=== PATIENT | female | born 1980 | race Caucasian/White ===

== ENCOUNTER 2018-04-22 03:02 | Emergency (ER) | payer OTHER, SELFPAY ==
[2018-04-22 03:03] VITALS: BP 131/68; PULSE 115; RESP 18; TEMP 36.8; O2SAT 100; BMI 44.3
--- NOTE | 2018-04-22 03:13 | CT_ITS ---
STUDY: CTA CHEST REASON FOR EXAM: Female, 38 years old. Back pain and right leg pain RADIATION DOSAGE (If Supplied By Facility): CTDIvol = ( 26.68 ) mGy, DLP = ( 708.34 ) mGycm TECHNIQUE: The examination was performed with the intravenous administration of 100ml ml of Isovue 370 contrast material. Post-processing of the angiographic images was performed, with multiplanar reformation and 3D reconstruction. Individualized dose optimization techniques were used for this CT. COMPARISON: None. FINDINGS: Left thyroidectomy. The contrast bolus is suboptimal, and the pulmonary arteries do not enhance. This exam is nondiagnostic for detection of pulmonary embolus. Normal thoracic aorta and visualized great vessels. There is no demonstrated aortic dissection. Normal heart and pericardium. Calcified mediastinal and right hilar lymph nodes. Normal visualized trachea and bronchi. The lungs are well expanded. 3 mm nodule in the right upper lobe on image 190 of series 2. Normal pleura. Normal chest wall structures. Normal osseous structures. Normal visualized upper abdomen. CT/CTA Chest W/WO Contrast IMPRESSION: The contrast bolus is suboptimal, and the pulmonary arteries are essentially unenhanced. This exam is nondiagnostic for detection of pulmonary embolus. No evidence of thoracic aortic aneurysm or dissection. 3 mm right upper lobe nodule. Based on Fleischner Society Guidelines, suggested follow-up for a </=4mm lung nodule detected incidentally on CT (in patients over age 35) is as follows: Low risk patients: No follow-up is needed. High risk patients: Initial follow-up CT at 12 months. If stable at 12 months, no further follow-up is necessary. Electronically Signed: Rafi Sarabia MD at 4:43 EDT Tel , Service support ,
--- NOTE | 2018-04-22 03:15 | ED.VISSUMM ---
- ER Visit Summary Date of Service: 04/22/18 Chief Complaint: [Right back pain] History of Present Illness: The patient is a 38 F [who presents the emergency department with right upper thoracic back pain. She states that for the last 1-2 weeks she has had pain in her right foot she had swelling in her right foot and it radiated up to the knee. That pain went away however she develops this catch in her right back that is progressively worsened is a sharp pain in her right upper back she feels like she cannot get a deep breath and it hurts to take a deep breath. It feels like her kidney stone pain but it is higher and the breathing discomfort is associated with it. No fevers or chills no cough. No PE or DVT risk factors. She has been lennox peaches. She does have a history of herniated disc. She also has had a cholecystectomy.] Physical Examination: [] Patient in mild distress due to pain WN WD NAD PERRL EOMI MMM NECK supple and nontender, no masses RRR no murmur rub or gallop, no peripheral edema, symmetric radial pulses CTAB no respiratory distress tachypneic secondary to pain Back is nontender in the midline throughout the cervical thoracic and lumbar spine No CVA tenderness No reproducible point tenderness to palpation ABDOMEN is soft and nontender, normal bowel sounds, no distension, no rebound or guarding SKIN is warm and dry no rashes Alert and Oriented x3, CN II-XII in tact, no motor or sensory deficits, gait normal No lymphadenopathy Test Results: [] Emergency Department Course and Treatment: [Patient was given pain medicine and EKG was obtained screening labs and a CTA was ordered. EKG is sinus at a rate of 96 with no acute ischemic changes. White blood cell count was slightly elevated at 12.1. TSH was elevated at 6. Patient has had a partial thyroidectomy. She has had a slightly elevated TSH and has followed with an medicare nurse who states it is okay for her to be off medicine. Patient was given Toradol for discomfort and she was feeling much better. She states the pain was really when she took a deep breath. CTA of the chest was obtained to evaluate for PE and was nondiagnostic because of poor contrast bolus. D-dimer was negative. Patient was very concerned about the radiation. Her pain in her foot was consistent with plantar fasciitis that she has been dealing with for the past several months. I think her symptoms are likely secondary to pleurisy. I will give her a low dose prednisone and she states she is quite sensitive to medications. She states that she does not do well with ibuprofen. She was given careful precautions for which to return. We did discuss to 3 mm nodule in her long and appropriate follow-up. She and her are comfortable with plan] Treatment Plan: [] Disposition: [Discharge] Impression: [Right thoracic back pain 2. pleurisy] This note was generated with [employer] dictation software. It may contain incorrect words, spelling, and punctuation that were not noted in review of the chart prior to signing ED Disposition - Plan for ED Patient: Chief Complaint: Back Referrals: Farooq Jimenez III, MD [Primary Care Provider] -
--- NOTE | 2018-04-22 03:19 | ED.DCSUM_ITS ---
- ER Visit Summary Date of Service: 04/22/18 Chief Complaint: [Right back pain] History of Present Illness: The patient is a 38 F [who presents the emergency department with right upper thoracic back pain. She states that for the last 1- 2 weeks she has had pain in her right foot she had swelling in her right foot and it radiated up to the knee. That pain went away however she develops this catch in her right back that is progressively worsened is a sharp pain in her right upper back she feels like she cannot get a deep breath and it hurts to take a deep breath. It feels like her kidney stone pain but it is higher and the breathing discomfort is associated with it. No fevers or chills no cough. No PE or DVT risk factors. She has been lennox peaches. She does have a history of herniated disc. She also has had a cholecystectomy.] Physical Examination: [] Patient in mild distress due to pain WN WD NAD PERRL EOMI MMM NECK supple and nontender, no masses RRR no murmur rub or gallop, no peripheral edema, symmetric radial pulses CTAB no respiratory distress tachypneic secondary to pain Back is nontender in the midline throughout the cervical thoracic and lumbar spine No CVA tenderness No reproducible point tenderness to palpation ABDOMEN is soft and nontender, normal bowel sounds, no distension, no rebound or guarding SKIN is warm and dry no rashes Alert and Oriented x3, CN II-XII in tact, no motor or sensory deficits, gait normal No lymphadenopathy Test Results: [] Emergency Department Course and Treatment: [Patient was given pain medicine and EKG was obtained screening labs and a CTA was ordered. EKG is sinus at a rate of 96 with no acute ischemic changes. White blood cell count was slightly elevated at 12.1. TSH was elevated at 6. Patient has had a partial thyroidectomy. She has had a slightly elevated TSH and has followed with an harvest manager who states it is okay for her to be off medicine. Patient was given Toradol for discomfort and she was feeling much better. She states the pain was really when she took a deep breath. CTA of the chest was obtained to evaluate for PE and was nondiagnostic because of poor contrast bolus. D-dimer was negative. Patient was very concerned about the radiation. Her pain in her foot was consistent with plantar fasciitis that she has been dealing with for the past several months. I think her symptoms are likely secondary to pleurisy. I will give her a low dose prednisone and she states she is quite sensitive to medications. She states that she does not do well with ibuprofen. She was given careful precautions for which to return. We did discuss to 3 mm nodule in her long and appropriate follow-up. She and her are comfortable with plan] Treatment Plan: [] Disposition: [Discharge] Impression: [Right thoracic back pain 2. pleurisy] This note was generated with [employer] dictation software. It may contain incorrect words, spelling, and punctuation that were not noted in review of the chart prior to signing ED Disposition - Plan for ED Patient: Chief Complaint: Back Referrals: Fraooq Jimenez III, MD [Primary Care Provider] -
[2018-04-22 03:22] VITALS: O2SAT 99
[2018-04-22] MEDS: 0.9% Normal Saline 1,000 ML 1000 ML IV (03:30)
[2018-04-22] MEDS: Ketorolac 30 MG/ML Syringe IV (03:34)
[2018-04-22 03:39] LABS: Absolute Lymphocyte Count 4.98 X10^3/ul (0.83-4.51); Absolute Neutrophil Count 5.8 X10^3/uL (2.0-7.7); Basophil# 0.04 X10^3/uL; Basophil% 0.3 % (0-1); Eosinophil# 0.25 X10^3/uL; Eosinophils% 2.1 % (0-5); Hemoglobin 13.1 g/dl (12.0-15.0); Lymphocyte # 4.98 X10^3/ul (4.0); Lymphocyte % 41.2 % (19-41); Mean Corp Hgb Conc 33.6 g/gl (32-36); Mean Corpuscular Hgb 26.8 pg (27.0-32.0); Mean Corpuscular Volume 79.9 fL (81-99); Mean Platelet Vol. 10.4 fl (6.2-12.0); Monocyte# 0.99 X10^3/uL; Monocyte% 8.2 % (0-10); Neutrophil # 5.79 X10^3/uL (2.7-7.7); Neutrophil % 47.9 % (47-70); POSITIVE COUNT NO; POSITIVE DIFFERENTIAL NO; POSITIVE MORPHOLOGY NO; Platelet Count 324 K/mm3 (150-450); RBC Distribution Width SD 40.5 fl (35.1-43.9); Red Blood Count 4.88 M/mm3 (4.2-5.4); White Blood Count 12.1 K/mm3 (4.4-11.0)
[2018-04-22 03:55] LABS: D-Dimer Quantitative (DVT/PE) 0.46 FEU/ug/m (0.27-0.49)
[2018-04-22 03:57] LABS: AST(SGOT) 19 U/L (15-37); Alanine Aminotransfer ALT/SGPT 28 U/L (13-56); Albumin, Serum 3.5 g/dL (3.2-5.0); Alkaline Phosphatase 110 U/L (45-117); Anion Gap 12 (5-15); BUN 13 mg/dL (7-18); BUN/Creat Ratio 15.6 RATIO (10-20); Bilirubin, Direct 0.08 mg/dL (0.00-0.30); Calcium,Total 8.5 mg/dL (8.5-10.1); Chloride 105 mmol/L (98-107); Creatinine, Serum 0.84 mg/dL (0.55-1.02); EST Glomerular Filtration Rate 82 mL/min (>60); Est Glom Filt Rate - Afr Amer 99 mL/min (>60); Estimated Creatinine Clearance 79.18 ml/min; Globulin 3.7 g/dL (2.2-4.2); Glucose 99 mg/dL (74-106); Lipase 119 U/L (73-393); Potassium 3.6 mmol/L (3.5-5.1); Protein, Total 7.2 g/dL (6.4-8.2); Sodium Level 141 mmol/L (136-145); Thyroid Stim Hormone (TSH) 6.59 uIU/mL (0.358-3.74)
[2018-04-22 03:58] LABS: Pregnancy, Serum, hCG Quali. NEGATIVE Negative (0-9 Nonpreg)
[2018-04-22 04:20] LABS: Mucous, Urine 0 SEEN /hpf (<or=2+); Red Blood Cells-Urine 0 SEEN /hpf (0-5)
[2018-04-22 04:22] LABS: Color, Urine Straw (Yellow); Glucose, Dipstick Normal (Normal); Ketone-Dipstick Negative (Negative); Leukocyte Esterase-Dipstick 25 /ul (Negative); Nitrite-Dipstick Negative (Negative); Occult Blood-Urine Negative /ul (Negative); Protein-Dipstick Negative (Negative); Urine Bilirubin Dipstick Negative (Negative); Urine Clarity Clear (Clear); Urine Urobilinogen Normal (Normal)
[2018-04-22 04:38] LABS: Bacteria RARE /hpf (None Seen); Squamous Epithelial Cells - UA 0-5 SEEN /hpf (5-10); White Blood Cells 0-5 SEEN /hpf (0-5)
--- NOTE | 2018-04-22 05:12 | ED.DEP ---
ED Disposition - Plan for ED Patient: Chief Complaint: Back Instructions: Pleurisy Prescriptions: Prednisone 20 mg PO DAILY #5 tablet Referrals: Farooq Jimenez III, MD [Primary Care Provider] - 3-5 Days
[2018-04-22 05:23] VITALS: BP 123/80; PULSE 91; RESP 17; O2SAT 96
== END 2018-04-22 05:24 | disposition home or self-care (01) ==
LOC: ED 03:41
PROVIDERS: Emergency Provider Emergency Medicine; Family Provider Family Medicine; PCP Family Medicine
DX: M54.6 Pain in thoracic spine (principal); R09.1 Pleurisy; R91.1 Solitary pulmonary nodule; Z87.442 Personal history of urinary calculi; Z87.19 Personal history of other diseases of the digestive system; Z90.49 Acquired absence of other specified parts of digestive tract
CPT/HCPCS: 71275; 80048; 80076; 81001; 83690; 84443; 84484; 84703; 85025; 85379; 93005; 96361; 96374; 99284; J7030; Q9967; A4216; J2405

== ENCOUNTER → 2018-04-22 11:13 | Outpatient (CLI) | payer OTHER, SELFPAY ==
--- NOTE | 2018-04-22 11:15 | VDLE_ITS ---
Reason For Study: CP RIGHT LEFT GSV is normal. GSV is normal. CFV is compressible, spontaneous, phasic, CFV is compressible, spontaneous, phasic, competent and demonstrates normal competent, and demonstrates normal augmentation. augmentation. FV is compressible, spontaneous, phasic, FV is compressible, spontaneous, phasic, competent and demonstrates normal competent and demonstrates normal augmentation. augmentation. POP V is compressible, spontaneous, phasic, POP V is compressible, spontaneous, phasic, competent and demonstrates normal competent and demonstrates normal augmentation. augmentation. T/P Trunk is compressible. T/P Trunk is compressible. PTV is compressible. PTV is compressible. RT PerV is compressible. LT PerV is compressible. Procedure Exam performed in department. The exam was diagnostic. A preliminary report was called and/or faxed to Dr. Chris Jimenez. Interpretation Summary No evidence for acute deep venous thrombosis bilateral lower extremities with patent and compressible bilateral great saphenous veins. Ordering Physician: Nicky Park Referring Physician: JENNIFER Jimenez M.D. Performed By: Mike Trejo RVT
== END ==
PROVIDERS: Family Provider Family Medicine; PCP Family Medicine; Visit Provider Emergency Medicine
DX: R07.9 Chest pain, unspecified (principal)
CPT/HCPCS: 93970

== ENCOUNTER → 2018-06-22 20:42 | Outpatient (CLI) | payer OTHER, SELFPAY | PROVIDERS: Visit Provider Nurse Practitioner Women's Health | DX: Z12.4 Encounter for screening for malignant neoplasm of cervix (principal) | CPT/HCPCS: 88175; G0145 ==

== ENCOUNTER → 2019-08-04 13:45 | Outpatient (CLI) | payer OTHER, SELFPAY ==
[2019-06-28 09:16] VITALS: BMI 42.9
--- NOTE | 2019-08-04 18:44 | NEURO ---
NCS and/or EMG Patient Report HPI: Patient is a 39-year-old female who presented with numbness and tingling in both hands which has been going on for about a year. Patient is right-handed. Patient wears both hand braces in the nighttime which helps with the pain and tingling. 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 Patient does not have history of diabetes but have history of hypothyroidism which has not been controlled. Physical Exam: Tenderness noted at both anterior wrist areas. Tinel's sign is positive at both wrist areas. No tenderness at medial epicondyle noted on both sides. Findings: 1.There is a prolongation of distal latency right and left median sensory nerve response 2.There is prolongation of distal latency of the right median motor nerve response. 3.Normal right ulnar sensory and motor nerve conduction studies. 4.Normal needle examination of the right and left upper extremities. Impression: 1. Findings are consistent with moderately severe right and mild left median mononeuropathies at the wrist due to carpal tunnel syndrome. 2. No electrodiagnostic evidence of ulnar neuropathy in both hands. Recommendation: 1. Patient recommended to continue to wear both hands splinta as much as possible. 2. Patient recommended to avoid repetitive right hand movements and heavy lifting from both hands. 3. Patient recommended to consult with her primary care physician regarding treatment of hypothyroidism. 4. Patient may need surgical release of carpal tunnel syndrome if symptoms does not improve.
== END ==
PROVIDERS: Family Provider Family Medicine; PCP Family Medicine; Referring Provider Specialist; Visit Provider Specialist
DX: R20.2 Paresthesia of skin (principal)
CPT/HCPCS: 95886; 95911

== ENCOUNTER → 2020-07-11 09:15 | Outpatient (CLI) | payer OTHER, SELFPAY ==
[2019-06-28 09:16] VITALS: BMI 42.9
== END ==
PROVIDERS: PCP Family Medicine; Referring Provider Family Medicine; Visit Provider Family Medicine
DX: U07.1 COVID-19 (principal)
CPT/HCPCS: 87635; C9803; U0003

== ENCOUNTER 2020-07-26 20:11 | Emergency (ER) | payer OTHER, SELFPAY ==
[2019-06-28 09:16] VITALS: BMI 42.9
[2020-07-26 20:12] VITALS: BP 139/82; PULSE 100; RESP 16; TEMP 36.4; O2SAT 95; BMI 38.7
--- NOTE | 2020-07-26 20:27 | US_ITS ---
HISTORY: BILATERAL LEG PAIN -- HAS COVID EXAMINATION: US Venous Duplex LE Bilat Complete TECHNIQUE: Leonard scale, pulse wave, and color flow Doppler imaging was performed of the lower extremity venous system. The bilateral greater saphenous, common femoral, femoral, and popliteal veins were interrogated. COMPARISON: April 22, 2018. 7 images end greater than a dozen cine clips FINDINGS: There is normal compression, augmentation, and signal throughout the visualized deep lower extremity veins. No Intraluminal filling defects are perceived within the insonated veins. US/Venous Duplex Imag/Kory Extrem IMPRESSION: No sonographic evidence of deep venous thrombosis. at 2131 Reported and signed by: Vincenzo Maravilla MD Electronically Signed: Vincenzo Maravilla MD at 21:30 EST Tel , Service support ,
--- NOTE | 2020-07-26 20:27 | ED.VIS.GEN ---
History of Present Illness Chief Complaint: Lower Extremity Injury Informant: Patient Onset: Days Context: Gradual Onset Timing: Continuous Current Severity: Moderate Maximum Severity: Moderate Narrative: The patient is a 40-year-old female that comes in the emergency department with bilateral calf pain. The patient was positive for Covid just about 3 weeks ago. She states she was having symptoms about 4 days prior to her test. She states that she was having some pain in both calves throughout her illness, but over the past few days it has worsened. She states she has been doing more. She denies any chest pain. She states she had some mild shortness of breath which has been constant since her illness. She denies any fevers or chills. She has no history of pulmonary embolus. She is otherwise been in her normal state of health. Prior similar symptoms: No Recent Illness/Hospitalization: Yes Past Medical History - Allergies and Home Meds Allergies/Adverse Reactions: Allergies ibuprofen Adverse Reaction (Intermediate, Verified 07/26/20 20:14) tingling and numbness in face acetaminophen [From Tylenol] Adverse Reaction (Mild, Verified 07/26/20 20:14) sweat caffeine Adverse Reaction (Verified 07/26/20 20:14) Other lorazepam [From Ativan] Adverse Reaction (Verified 07/26/20 20:14) Other Primary Care Physician: Farooq Jimenez III, MD [Primary Care Provider] - Prior records reviewed: Yes Surgical History: noncontributory Smoking Status: Never smoker Review of Systems General: Denies: Chills, Fever, Sweats Eyes: Denies: Visual changes - bilaterally, Diplopia ENT: Denies: Rhinorrhea, Sore throat Cardiovascular: Denies: Chest pain, Palpitations Respiratory: Denies: Dyspnea, Cough, Dyspnea on exertion Gastrointestinal: Denies: Abdominal pain, Nausea, Vomiting, Diarrhea, Melena, Hematochezia Genitourinary: Denies: Dysuria, Hematuria, Frequency Musculoskeletal: Reports: Myalgias, Arthralgias. Denies: Back pain, Extremity Pain Skin: Denies: Rash, Wounds Neurological: Denies: Headache, Weakness, Numbness Physical Exam Vital Signs/Narrative: Vital Signs Temp Pulse Resp BP Pulse Ox 07/26/20 20:12 97.5 F L 100 16 139/82 H 95 Inital Vital Signs reviewed: Yes General: Well nourished, Well developed, No Acute Distress Head: Normocephalic, Atraumatic Eyes: Perrl, EOMI ENT: Moist mucous membranes, No rhinorrhea Neck: Supple, Nontender Cardiovascular: Regular rate, Regular rhythm, No murmurs Respiratory: No distress, CTA bilaterally, Chest nontender Abdomen: Soft, Nontender, Nondistended, Normal bowel sounds Back: Nontender, Normal Inspection Extremities: Nontender, No edema Skin: Normal color, No rash Neurological: Alert, Oriented x3, Cranial nerves II-XII grossly intact, Normal Strength, Normal Sensation Psychological: Normal affect, Normal Mood Diagnostic/Tx/Re-eval - Medical Decision Making Patient presents with bilateral calf pain. She has been 20 days since her positive test. She has normal pulses. Her calves are soft. Compartments are soft. However, given recent infection with known thrombogenic risk, ultrasound was obtained. Ultrasound shows no evidence of deep vein thrombosis. Metabolic work-up was also unremarkable. At this point, I do not suspect a dangerous process. I do feel the patient is safe for outpatient follow-up. She is comfortable with plan of care. Impression 1. Lower extremity myalgias ED Disposition - Plan for ED Patient: Instructions: ED Muscle Pain Leg Cramps, ED Myositis Referrals: Farooq Jimenez III, MD [Primary Care Provider] -
[2020-07-26 20:54] LABS: Absolute Lymphocyte Count 3.24 X10^3/uL (0.83-4.51); Absolute Neutrophil Count 5.7 X10^3/uL (2.0-7.7); Basophil# 0.07 X10^3/uL; Basophil% 0.7 % (0-1); Eosinophil# 0.16 X10^3/uL; Eosinophils% 1.6 % (0-5); Hemoglobin 13.1 g/dL (12.0-15.0); Lymphocyte # 3.24 X10^3/ul (4.0); Lymphocyte % 32.7 % (19-41); Mean Corpuscular Hgb 27.2 pg (27.0-32.0); Mean Corpuscular Volume 85.1 fL (81-99); Mean Platelet Vol. 10.6 fl (6.2-12.0); Monocyte# 0.68 X10^3/uL; Monocyte% 6.9 % (0-10); NRBC Flagged by Analyzer 0 % (0-5); Neutrophil # 5.73 X10^3/uL (2.7-7.7); Neutrophil % 57.8 % (47-70); Platelet Count 302 K/mm3 (150-450); RBC Distribution Width CV 13.1 % (11.6-14.6); RBC Distribution Width SD 40.3 fl (35.1-43.9); Red Blood Count 4.82 M/mm3 (4.2-5.4); White Blood Count 9.9 K/mm3 (4.4-11.0)
[2020-07-26 21:10] LABS: AST(SGOT) 12 U/L (15-37); Alanine Aminotransfer ALT/SGPT 31 U/L (13-56); Albumin, Serum 3.7 g/dL (3.2-5.0); Alkaline Phosphatase 115 U/L (45-117); Anion Gap 6 (5-15); BUN 15 mg/dL (7-18); BUN/Creat Ratio 17.2 RATIO (10-20); Calcium,Total 9.2 mg/dL (8.5-10.1); Chloride 107 mmol/L (98-107); Creatinine, Serum 0.87 mg/dL (0.55-1.02); EST Glomerular Filtration Rate 77 mL/min (>60); Est Glom Filt Rate - Afr Amer 93 mL/min (>60); Estimated Creatinine Clearance 74.97 ml/min; Globulin 3.8 g/dL (2.2-4.2); Glucose 95 mg/dL (74-106); Potassium 3.6 mmol/L (3.5-5.1); Protein, Total 7.5 g/dL (6.4-8.2); Sodium Level 141 mmol/L (136-145)
== END 2020-07-26 21:33 | disposition home or self-care (01) ==
LOC: ED 20:46
PROVIDERS: Emergency Provider Emergency Medicine; PCP Family Medicine
DX: M79.661 Pain in right lower leg (principal); M79.662 Pain in left lower leg
CPT/HCPCS: 80053; 85025; 93970; 99283; A4216

== ENCOUNTER → 2020-08-07 09:37 | Outpatient (CLI) | payer OTHER, SELFPAY ==
[2020-08-07 08:19] VITALS: BMI 38.9
[2020-08-07 09:57] LABS: Absolute Lymphocyte Count 2.93 X10^3/uL (0.83-4.51); Absolute Neutrophil Count 5.2 X10^3/uL (2.0-7.7); Basophil# 0.05 X10^3/uL; Basophil% 0.6 % (0-1); Eosinophil# 0.12 X10^3/uL; Eosinophils% 1.3 % (0-5); Hematocrit 43.3 % (37-47); Hemoglobin 13.7 g/dL (12.0-15.0); Lymphocyte # 2.93 X10^3/ul (4.0); Lymphocyte % 32.7 % (19-41); Mean Corp Hgb Conc 31.6 g/dL (32-36); Mean Corpuscular Volume 85.4 fL (81-99); Mean Platelet Vol. 9.8 fl (6.2-12.0); Monocyte# 0.64 X10^3/uL; Monocyte% 7.1 % (0-10); NRBC Flagged by Analyzer 0 % (0-5); Neutrophil # 5.18 X10^3/uL (2.7-7.7); Neutrophil % 57.9 % (47-70); Platelet Count 274 K/mm3 (150-450); RBC Distribution Width CV 13.4 % (11.6-14.6); RBC Distribution Width SD 41.6 fl (35.1-43.9); Red Blood Count 5.07 M/mm3 (4.2-5.4)
[2020-08-07 10:16] LABS: Vitamin D,25 Hydroxy 44.4 ng/mL
[2020-08-07 10:21] LABS: Cholesterol 170 mg/dL (200); Glucose 93 mg/dL (74-106); High Density Lipoprotein 58 mg/dL; Thyroid Stim Hormone (TSH) 3.06 uIU/mL (0.358-3.74); Triglycerides 81 mg/dL; Very Low Density Lipoprotein 16 mg/dL (5-40)
== END ==
PROVIDERS: PCP Family Medicine; Referring Provider Obstetrics & Gynecology; Visit Provider Obstetrics & Gynecology
DX: Z01.419 Encounter for gynecological examination (general) (routine) without abnormal findings (principal)
CPT/HCPCS: 36415; 80061; 82306; 82947; 84439; 84443; 85025

== ENCOUNTER → 2021-04-15 10:08 | Outpatient (CLI) | payer OTHER, SELFPAY ==
[2021-04-15 09:21] VITALS: BMI 38.9
[2021-04-15 12:24] LABS: Absolute Lymphocyte Count 2.37 X10^3/uL (0.83-4.51); Absolute Neutrophil Count 3.8 X10^3/uL (2.0-7.7); Basophil# 0.05 X10^3/uL; Basophil% 0.7 % (0-1); Eosinophil# 0.12 X10^3/uL; Eosinophils% 1.8 % (0-5); Hematocrit 43.6 % (37-47); Hemoglobin 14.1 g/dL (12.0-15.0); Lymphocyte # 2.37 X10^3/ul (0.83-4.51); Lymphocyte % 34.6 % (19-41); Mean Corp Hgb Conc 32.3 g/dL (32-36); Mean Corpuscular Hgb 27.2 pg (27.0-32.0); Mean Corpuscular Volume 84.2 fL (81-99); Mean Platelet Vol. 10.2 fl (6.2-12.0); Monocyte# 0.45 X10^3/uL; Monocyte% 6.6 % (0-10); NRBC Flagged by Analyzer 0 % (0-5); Neutrophil # 3.84 X10^3/uL (2.7-7.7); Platelet Count 277 K/mm3 (150-450); RBC Distribution Width CV 14.4 % (11.6-14.6); RBC Distribution Width SD 44.2 fl (35.1-43.9); Red Blood Count 5.18 M/mm3 (4.2-5.4); White Blood Count 6.9 K/mm3 (4.4-11.0)
[2021-04-15 12:44] LABS: ALB/GLOB Ratio 0.9 RATIO (0.9-2.4); AST(SGOT) 43 U/L (15-37); Alanine Aminotransfer ALT/SGPT 88 U/L (13-56); Albumin, Serum 3.5 g/dL (3.2-5.0); Alkaline Phosphatase 86 U/L (45-117); Anion Gap 5 (5-15); BUN 10 mg/dL (7-18); BUN/Creat Ratio 14.1 RATIO (10-20); Calcium,Total 8.6 mg/dL (8.5-10.1); Chloride 108 mmol/L (98-107); Cholesterol 190 mg/dL (200); Creatinine, Serum 0.71 mg/dL (0.55-1.02); EST Glomerular Filtration Rate 97 mL/min (>60); Est Glom Filt Rate - Afr Amer 117 mL/min (>60); Globulin 4.1 g/dL (2.2-4.2); Glucose 88 mg/dL (74-106); High Density Lipoprotein 66 mg/dL; Potassium 4.1 mmol/L (3.5-5.1); Protein, Total 7.6 g/dL (6.4-8.2); Sodium Level 138 mmol/L (136-145); Thyroid Stim Hormone (TSH) 3.13 uIU/mL (0.358-3.74); Triglycerides 154 mg/dL; Very Low Density Lipoprotein 31 mg/dL (5-40)
[2021-04-15 12:47] LABS: Hemoglobin A1c 5.4 % (3.8-5.6)
== END ==
PROVIDERS: PCP Internal Medicine; Visit Provider Internal Medicine
DX: E03.9 Hypothyroidism, unspecified (principal); R73.03 Prediabetes
CPT/HCPCS: 36415; 80053; 80061; 83036; 84439; 84443; 85025

== ENCOUNTER → 2021-04-24 08:45 | Outpatient (CLI) | payer OTHER, SELFPAY ==
[2021-04-15 09:21] VITALS: BMI 38.9
--- NOTE | 2021-04-24 08:50 | US_ITS ---
STUDY: ABDOMINAL ULTRASOUND - RIGHT UPPER QUADRANT REASON FOR VISIT: Female, 41 years old. Elevated liver enzymes TECHNIQUE: Ultrasound evaluation of the right upper quadrant was performed with real-time and static pinto-scale imaging. TECHNICAL QUALITY: Adequate. COMPARISON: None. FINDINGS: Liver: The liver measures 17.7 cm. There is increased echogenicity consistent with fatty infiltration. The bile ducts are within normal limits. There is hepatic color flow. The direction of portal flow is hepatopetal. There is no demonstrated mass lesion. Gallbladder: The patient is status post cholecystectomy. Common Bile Duct (C.B.D.): The common bile duct measures 6 mm. Pancreas: Normal size of the head, body and tail of the pancreas. There is normal echogenicity of the pancreas. There is no demonstrated pancreatic mass or cyst. Right Kidney: Normal size of the right kidney. The right kidney measures 11.8 cm. Normal renal cortex. There is no demonstrated renal mass or cyst. There is no right hydronephrosis. US/Liver IMPRESSION: Fatty liver. No focal hepatic lesions. Status post cholecystectomy. Normal sonographic appearance of the right kidney and pancreas. Electronically Signed: Dylan Ayala MD at 10:04 EDT Tel , Service support ,
== END ==
PROVIDERS: PCP Internal Medicine; Referring Provider Internal Medicine; Visit Provider Internal Medicine
DX: R74.8 Abnormal levels of other serum enzymes (principal)
CPT/HCPCS: 76705

== ENCOUNTER → 2021-08-23 | Outpatient (CLI) | payer OTHER, SELFPAY ==
[2021-08-28 10:13] LABS: HPV APTIMA, High Risk Negative (Negative)
== END | disposition home or self-care (01) ==
LOC: LABSPEC 12:20
PROVIDERS: PCP Internal Medicine; Visit Provider Obstetrics & Gynecology
DX: Z01.419 Encounter for gynecological examination (general) (routine) without abnormal findings (principal)
CPT/HCPCS: 87624; 88175; G0145

== ENCOUNTER → 2021-09-04 08:29 | Outpatient (CLI) | payer OTHER, SELFPAY ==
--- NOTE | 2021-09-04 08:31 | BI_ITS ---
MAMMOGRAPHY - BILATERAL SCREENING REASON FOR EXAM: Female, 41 years old. Routine annual screening examination. PERTINENT HISTORY: Aunt with breast cancer. TECHNIQUE: Digital bilateral breast maurilio (3D mammographic acquisition) in the CC and MLO projections. 2-D mediolateral oblique (MLO) and craniocaudad (CC) views of both breasts were obtained. CAD: Full Field Digital Mammography with Computer Added Detection was performed. COMPARISON: None. Baseline examination. FINDINGS: Breast Composition: The breasts are heterogeneously dense, which may obscure small masses. There are no dominant masses or suspicious calcifications. Small benign-appearing bilateral axillary lymph nodes. No other significant abnormalities are identified. BI/SCRN MAMM (CAD)W/MAURILIO BILAT IMPRESSION: Negative screening mammogram. Yearly followup mammogram recommended. (A) ASSESSMENT CATEGORY: BIRADS Category 2: Benign. A letter regarding these results will be sent to the patient by the facility within 30 days. Approximately 10% of breast cancers are not detected by mammography. A normal mammogram should not delay biopsy of a clinically suspicious abnormality. [id number] Electronically Signed: Clay Garland MD at 9:30 EST , Service support ,
== END ==
PROVIDERS: PCP Internal Medicine; Referring Provider Obstetrics & Gynecology; Visit Provider Obstetrics & Gynecology
DX: Z12.31 Encounter for screening mammogram for malignant neoplasm of breast (principal)
CPT/HCPCS: 77063; 77067

== ENCOUNTER → 2022-03-20 | Outpatient (CLI) | payer OTHER, SELFPAY ==
[2022-03-20 11:59] LABS: Absolute Lymphocyte Count 2.85 X10^3/uL (0.83-4.51); Absolute Neutrophil Count 4.5 X10^3/uL (2.0-7.7); Basophil# 0.06 X10^3/uL; Basophil% 0.7 % (0-1); Eosinophil# 0.12 X10^3/uL; Eosinophils% 1.5 % (0-5); Hematocrit 39.1 % (37-47); Hemoglobin 12.3 g/dL (12.0-15.0); Lymphocyte # 2.85 X10^3/ul (0.83-4.51); Lymphocyte % 34.8 % (19-41); Mean Corp Hgb Conc 31.5 g/dL (32-36); Mean Corpuscular Hgb 25.6 pg (27.0-32.0); Mean Corpuscular Volume 81.3 fL (81-99); Mean Platelet Vol. 10.3 fl (6.2-12.0); Monocyte# 0.67 X10^3/uL; Monocyte% 8.2 % (0-10); NRBC Flagged by Analyzer 0 % (0-5); Neutrophil # 4.45 X10^3/uL (2.7-7.7); Neutrophil % 54.2 % (47-70); Platelet Count 328 K/mm3 (150-450); RBC Distribution Width CV 13.9 % (11.6-14.6); RBC Distribution Width SD 40.7 fl (35.1-43.9); Red Blood Count 4.81 M/mm3 (4.2-5.4); White Blood Count 8.2 K/mm3 (4.4-11.0)
[2022-03-20 12:24] LABS: Vitamin D,25 Hydroxy 40.1 ng/mL
[2022-03-20 12:27] LABS: AST(SGOT) 20 U/L (15-37); Alanine Aminotransfer ALT/SGPT 31 U/L (13-56); Albumin, Serum 3.5 g/dL (3.2-5.0); Alkaline Phosphatase 82 U/L (45-117); Anion Gap 6 (5-15); BUN 10 mg/dL (7-18); Calcium,Total 8.8 mg/dL (8.5-10.1); Chloride 106 mmol/L (98-107); Cholesterol 185 mg/dL (200); Creatinine, Serum 0.77 mg/dL (0.55-1.02); EST Glomerular Filtration Rate 88 mL/min (>60); Est Glom Filt Rate - Afr Amer 106 mL/min (>60); Free T3 2.7 pg/mL (2.18-3.98); Globulin 3.5 g/dL (2.2-4.2); Glucose 97 mg/dL (74-106); High Density Lipoprotein 55 mg/dL; Potassium 4.3 mmol/L (3.5-5.1); Sodium Level 138 mmol/L (136-145); T4 Free Direct 1.03 ng/dL (0.76-1.46); Thyroid Stim Hormone (TSH) 2.32 uIU/mL (0.358-3.74); Triglycerides 112 mg/dL; Very Low Density Lipoprotein 22 mg/dL (5-40)
[2022-03-20 14:03] LABS: Hemoglobin A1c 5.6 % (3.8-5.6)
== END | disposition home or self-care (01) ==
LOC: BIMLAB 09:32
PROVIDERS: PCP Internal Medicine; Referring Provider Internal Medicine; Visit Provider Internal Medicine
DX: E03.9 Hypothyroidism, unspecified (principal); E55.9 Vitamin D deficiency, unspecified; E66.9 Obesity, unspecified; R73.03 Prediabetes
CPT/HCPCS: 36415; 80053; 80061; 82306; 83036; 84439; 84443; 84481; 85025

== ENCOUNTER 2022-05-29 17:57 | Emergency (ER) | payer OTHER, SELFPAY ==
[2022-05-29 17:59] VITALS: BP 155/87; PULSE 124; RESP 18; TEMP 38.6; O2SAT 98; BMI 45.0
--- NOTE | 2022-05-29 18:50 | RAD_ITS ---
STUDY: X-RAY CHEST REASON FOR EXAM: Female, 42 years old. COUGH TECHNIQUE: AP portable COMPARISON: 12/20/2015 FINDINGS: The lungs are clear and expanded. There is no demonstrated pleural abnormality. Normal size heart. Normal mediastinum and king. Normal visualized pulmonary arteries. Normal visualized aortic arch and descending thoracic aorta. Normal visualized thoracic spine. Normal visualized ribs, clavicles, and shoulders. There is no demonstrated abnormality of the visualized soft tissue structures of the upper abdomen. RAD/Chest 1 View (Portable) IMPRESSION: Normal x-ray examination of the chest. Electronically Signed: Von Riggs MD at 19:52 EDT ,
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
[2022-05-29 19:57] VITALS: TEMP 37.7
== END 2022-05-29 20:03 | disposition home or self-care (01) ==
PROVIDERS: Emergency Provider Emergency Medicine; PCP Internal Medicine; Visit Provider Emergency Medicine
DX: B34.9 Viral infection, unspecified (principal); J40 Bronchitis, not specified as acute or chronic; Z20.822 Contact with and (suspected) exposure to COVID-19
CPT/HCPCS: 71045; 87811; 94640; 99282

== ENCOUNTER → 2022-07-10 | Outpatient (CLI) | payer OTHER, SELFPAY ==
--- NOTE | 2022-07-10 13:50 | US_ITS ---
STUDY: THYROID ULTRASOUND REASON FOR EXAM: Female, 42 years old. history of nodule TECHNIQUE: Ultrasound evaluation of the thyroid was performed with real-time and static pinto-scale imaging. COMPARISON: None. FINDINGS: RIGHT LOBE: The right lobe of the thyroid gland measures 4.7 x 1.9 x 2.1 cm. There is a homogeneous echotexture. There are no demonstrated solid, cystic or complex lesions. LEFT LOBE: Nonvisualized postsurgical lobectomy.. ISTHMUS: The isthmus measures 1.4 mm . The regional lymph nodes are normal. US/Thyroid IMPRESSION: Normal right lobe of the thyroid status post left lobectomy Electronically Signed: Von Riggs MD at 22:13 EDT ,
[2022-07-10 14:31] LABS: Vitamin D,25 Hydroxy 65.8 ng/mL
[2022-07-10 14:35] LABS: T4 Free Direct 1.03 ng/dL (0.76-1.46); Thyroid Stim Hormone (TSH) 3.42 uIU/mL (0.358-3.74)
[2022-07-12 09:44] LABS: Thyroid Peroxidase AB < 8 IU/mL (0-34)
== END | disposition home or self-care (01) ==
LOC: US 13:49
PROVIDERS: Nurse Practitioner Family; PCP Internal Medicine; Referring Provider Internal Medicine Endocrinology, Diabetes & Metabolism; Visit Provider Internal Medicine Endocrinology, Diabetes & Metabolism
DX: E55.9 Vitamin D deficiency, unspecified (principal); Z86.39 Personal history of other endocrine, nutritional and metabolic disease
CPT/HCPCS: 36415; 76536; 82306; 84439; 84443; 86376

== ENCOUNTER → 2022-09-18 | Outpatient (CLI) | payer OTHER, SELFPAY ==
--- NOTE | 2022-09-18 08:35 | BI_ITS ---
MAMMOGRAPHY - BILATERAL SCREENING REASON FOR EXAM: Female, 42 years old. Routine annual screening examination. PERTINENT HISTORY: Aunt with breast cancer. TECHNIQUE: Digital bilateral breast maurilio (3D mammographic acquisition) in the CC and MLO projections. 2-D mediolateral oblique (MLO) and craniocaudad (CC) views of both breasts were obtained. CAD: Full Field Digital Mammography with Computer Added Detection was performed. COMPARISON: Comparison is made with prior study dated 09/04/2021. FINDINGS: Breast Composition: There are scattered areas of fibroglandular density. There are no dominant masses or suspicious calcifications. Stable small benign-appearing bilateral axillary lymph nodes. No other significant abnormalities are identified. There has been no significant change since the prior study. BI/SCRN MAMM (CAD)W/MAURILIO BILAT IMPRESSION: Stable bilateral screening mammogram. Yearly follow-up mammogram recommended. (A) ASSESSMENT CATEGORY: BIRADS Category 2: Benign. A letter regarding these results will be sent to the patient by the facility within 30 days. Approximately 10% of breast cancers are not detected by mammography. A normal mammogram should not delay biopsy of a clinically suspicious abnormality. [id number] Electronically Signed: Clay Garland MD at 10:16 EST ,
[2022-09-18 09:53] LABS: Free T3 2.5 pg/mL (2.18-3.98); T4 Free Direct 0.98 ng/dL (0.76-1.46); Thyroid Stim Hormone (TSH) 3.08 uIU/mL (0.358-3.74)
== END | disposition home or self-care (01) ==
PROVIDERS: Preventive Medicine Public Health & General Preventive Medicine; PCP Internal Medicine; Visit Provider Obstetrics & Gynecology
DX: Z12.31 Encounter for screening mammogram for malignant neoplasm of breast (principal); Z80.3 Family history of malignant neoplasm of breast; E03.9 Hypothyroidism, unspecified; E55.9 Vitamin D deficiency, unspecified
CPT/HCPCS: 36415; 77063; 77067; 82306; 84439; 84443; 84481

== ENCOUNTER → 2023-05-29 | Outpatient (CLI) | payer OTHER, SELFPAY ==
[2023-05-29 10:38] LABS: Free T3 2.5 pg/mL (2.18-3.98); T4 Free Direct 1.34 ng/dL (0.76-1.46); Thyroid Stim Hormone (TSH) 1.97 uIU/mL (0.358-3.74)
[2023-05-29 10:41] LABS: Vitamin D,25 Hydroxy 81.8 ng/mL
[2023-05-30 05:07] LABS: Thyroid Peroxidase AB 16 IU/mL (0-34)
== END | disposition home or self-care (01) ==
LOC: MTLAB 08:50
PROVIDERS: PCP Internal Medicine; Referring Provider Preventive Medicine Public Health & General Preventive Medicine; Visit Provider Preventive Medicine Public Health & General Preventive Medicine
DX: E03.9 Hypothyroidism, unspecified (principal); E55.9 Vitamin D deficiency, unspecified
CPT/HCPCS: 36415; 82306; 84439; 84443; 84481; 86376

== ENCOUNTER → 2023-09-22 | Outpatient (CLI) | payer OTHER, SELFPAY ==
--- NOTE | 2023-09-22 12:03 | BI_ITS ---
MAMMOGRAPHY - BILATERAL SCREENING REASON FOR EXAM: Female, 43 years old. Routine annual screening examination. PERTINENT HISTORY: Non-contributory. TECHNIQUE: Digital bilateral breast maurilio (3D mammographic acquisition) in the CC and MLO projections. 2-D mediolateral oblique (MLO) and craniocaudad (CC) views of both breasts were obtained. CAD: Full Field Digital Mammography with Computer Added Detection was performed. COMPARISON: Comparison is made with prior study dated March 18, 2023. FINDINGS: Breast Composition: There are scattered areas of fibroglandular density. There are no dominant masses or suspicious calcifications. No other significant abnormalities are identified. There has been no significant change since the prior study. BI/SCRN MAMM (CAD)W/MAURILIO BILAT IMPRESSION: Stable bilateral screening mammogram. Yearly follow-up mammogram recommended. (A) ASSESSMENT CATEGORY: BIRADS Category 1: Negative. A letter regarding these results will be sent to the patient by the facility within 30 days. Approximately 10% of breast cancers are not detected by mammography. A normal mammogram should not delay biopsy of a clinically suspicious abnormality. [id number] Electronically Signed: Clay Garland MD at 13:32 EST ,
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
== END | disposition home or self-care (01) ==
LOC: OPBI 12:03
PROVIDERS: PCP Internal Medicine; Referring Provider Obstetrics & Gynecology; Visit Provider Obstetrics & Gynecology
DX: Z12.31 Encounter for screening mammogram for malignant neoplasm of breast (principal)
CPT/HCPCS: 77063; 77067

== ENCOUNTER → 2024-02-11 | Outpatient (CLI) | payer OTHER, SELFPAY ==
[2024-02-11 10:08] LABS: Absolute Lymphocyte Count 2.42 X10^3/uL (0.83-4.51); Absolute Neutrophil Count 4.2 X10^3/uL (2.0-7.7); Basophil# 0.05 X10^3/uL; Basophil% 0.7 % (0-1); Eosinophils% 1.4 % (0-5); Hematocrit 40.4 % (37-47); Hemoglobin 12.9 g/dL (12.0-15.0); Lymphocyte # 2.42 X10^3/ul (0.83-4.51); Lymphocyte % 33.5 % (19-41); Mean Corp Hgb Conc 31.9 g/dL (32-36); Mean Corpuscular Hgb 25.9 pg (27.0-32.0); Mean Platelet Vol. 9.8 fl (6.2-12.0); Monocyte# 0.46 X10^3/uL; Monocyte% 6.4 % (0-10); NRBC Flagged by Analyzer 0 % (0-5); Neutrophil # 4.17 X10^3/uL (2.7-7.7); Neutrophil % 57.7 % (47-70); Platelet Count 299 K/mm3 (150-450); RBC Distribution Width CV 13.9 % (11.6-14.6); RBC Distribution Width SD 40.8 fl (35.1-43.9); Red Blood Count 4.99 M/mm3 (4.2-5.4); White Blood Count 7.2 K/mm3 (4.4-11.0)
[2024-02-11 10:30] LABS: Vitamin D,25 Hydroxy 64.1 ng/mL
[2024-02-11 10:46] LABS: Hemoglobin A1c 5.5 % (3.8-5.6)
[2024-02-11 11:09] LABS: ALB/GLOB Ratio 0.9 RATIO (0.9-2.4); AST(SGOT) 22 U/L (15-37); Alanine Aminotransfer ALT/SGPT 33 U/L (13-56); Albumin, Serum 3.6 g/dL (3.2-5.0); Alkaline Phosphatase 92 U/L (45-117); Anion Gap 8 (5-15); BUN 9 mg/dL (7-18); BUN/Creat Ratio 11.9 RATIO (10-20); Chloride 106 mmol/L (98-107); Cholesterol 161 mg/dL (200); Creatinine, Serum 0.75 mg/dL (0.55-1.02); EST Glomerular Filtration Rate 89 mL/min (>60); Est Glom Filt Rate - Afr Amer 108 mL/min (>60); Estradiol 72.2 pg/mL; Ferritin 20 ng/mL (8-252); Follicle Stimulating Hormone 5.3 mIU/mL; Glucose 95 mg/dL (74-106); High Density Lipoprotein 56 mg/dL; Iron 70 ug/dL (50-170); Iron Binding Capacity,Total 438 ug/dL (250-450); Potassium 3.8 mmol/L (3.5-5.1); Protein, Total 7.6 g/dL (6.4-8.2); Sodium Level 138 mmol/L (136-145); Thyroid Stim Hormone (TSH) 2.32 uIU/mL (0.358-3.74); Triglycerides 109 mg/dL; Very Low Density Lipoprotein 22 mg/dL (5-40)
[2024-02-17 11:09] LABS: Testosterone Free 1.5 pg/mL (0.0-4.2)
[2024-02-17 16:10] LABS: 17-Hydroxyprogesterone 19 ng/dL (.)
== END | disposition home or self-care (01) ==
LOC: PAVLAB 09:36
PROVIDERS: PCP Internal Medicine; Referring Provider Obstetrics & Gynecology; Visit Provider Obstetrics & Gynecology
DX: N93.9 Abnormal uterine and vaginal bleeding, unspecified (principal); Z13.29 Encounter for screening for other suspected endocrine disorder; Z13.21 Encounter for screening for nutritional disorder; Z13.220 Encounter for screening for lipoid disorders; Z13.1 Encounter for screening for diabetes mellitus
CPT/HCPCS: 36415; 80053; 80061; 82306; 82627; 82670; 82728; 83001; 83036; 83498; 83540; 83550; 84402; 84443; 85025; 82626

== ENCOUNTER → 2024-02-18 | Outpatient (CLI) | payer OTHER, SELFPAY ==
--- NOTE | 2024-02-18 12:57 | US_ITS ---
STUDY: ULTRASOUND OF THE FEMALE PELVIS - COMPLETE REASON FOR EXAM: Female, 43 years old. Abnormal uterine bleeding. Heavy menses. LMP: February 04, 2024. TECHNIQUE: Transabdominal and Transvaginal TECHNICAL QUALITY: Adequate. COMPARISON: None. FINDINGS: The uterus is anteverted and is in a midline position. The uterus measures 12.1 cm x 5.8 cm x 4.8 cm. There is a Nabothian cyst of the cervix. The endometrium measures 10.3 mm in thickness, and is heterogeneous (striated). There is no demonstrated endometrial mass. Heterogeneous appearance of the uterus. Adenomyosis should be ruled out. I.U.D. - The patient does not have an I.U.D. The right ovary is visualized. The right ovary measures 4.3 cm x 2.5 cm x 2.1 cm. There is a 2.3 cm x 2.2 cm x 1.8 cm simple cyst. There is no visualized right adnexal mass or complex lesion. There is normal arterial and normal venous vascularity. The left ovary is visualized. The left ovary measures 2.9 cm x 2.8 cm x 2.1 cm. There is no left ovarian cyst or ovarian mass. There is no visualized left adnexal mass or complex lesion. There is normal arterial and normal venous vascularity. There is no fluid in the cul-de-sac. The pre void volume of the bladder was 580. ml. US/Pelvic w/ Transvaginal IMPRESSION: Heterogeneous appearance of the myometrium suggestive of adenomyosis. Thickened endometrium. Right ovarian cyst. Electronically Signed: Clay Garland MD at 15:16 EDT ,
== END | disposition home or self-care (01) ==
LOC: US 12:56
PROVIDERS: PCP Internal Medicine; Referring Provider Obstetrics & Gynecology; Visit Provider Obstetrics & Gynecology
DX: N93.9 Abnormal uterine and vaginal bleeding, unspecified (principal)
CPT/HCPCS: 76830; 76856

== ENCOUNTER → 2024-02-20 | Outpatient (CLI) | payer OTHER, SELFPAY | END | disposition home or self-care (01) | LOC: LAB 07:57 | PROVIDERS: PCP Internal Medicine; Referring Provider Nurse Practitioner; Visit Provider Nurse Practitioner | DX: R19.7 Diarrhea, unspecified (principal); K58.9 Irritable bowel syndrome, unspecified | CPT/HCPCS: 87493; 87506 ==

== ENCOUNTER 2024-04-12 08:34 | Day surgery (SDC) | payer OTHER, SELFPAY ==
[2024-04-12] VITALS (8 sets, daily range): BP systolic 90–132; BP diastolic 57–75; PULSE 51–89; RESP 16–18; TEMP 36.6–37.2; O2SAT 92–100; BMI 43.4
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
[2024-04-12 09:03] LABS: Internal QC Validated? YES +Cl - CLEAR BKGD
[2024-04-12 09:04] LABS: Pregnancy, Urine Negative Negative
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
[2024-04-12] MEDS: Lactated Ringers 1,000 ML 15 ML IV (09:15)
--- NOTE | 2024-04-12 09:55 | FALS_PTH ---
PATIENT: ZENY GARCIA LOC: [facility] – [place] U#:[id number] AGE/SX: 43/F ROOM: RE04/12/[address]: Dr. Angelica Jolley MD : 1980 BED: DIS: 04/12/2024 SPEC #: [id number] RECD: 04/12/24 11:12 STATUS: MARCELLA CONRADO #: [id number] RICHA: 04/12/24 09:[address]: Angelica Jolley DEPT: SURGICAL PATHOLOGY RECD BY: Stevo Taylor ENTERED: 04/12/24 13:09 SP TYPE: FALL TUBES OTHR DR: Bertha Nation, RADHA Tissues: Fallopian tube Procedures: Surgery Specimen Level II HEADER OPERATION: Laparoscopic bilateral salpingectomy, hysteroscopy D&C PRE-OP DIAGNOSIS: Abnormal uterine bleeding, sterilization request TISSUE SUBMITTED: A- Bilateral fallopian tubes, B- Endometrial curettings MICROSCOPIC DIAGNOSIS A. Right and left fallopian tubes, bilateral salpingectomies: Complete cross-sections of one fallopian tubes with no pathologic change. Complete cross-sections of second fallopian tube with benign paratubal cyst. B. Endometrium, curettings: Secretory endometrium. Rare fragments of benign superficial endocervix. / 04/13/2024 MICROSCOPIC DESCRIPTION Slides are reviewed. GROSS DESCRIPTION A. Received in fixative is one container labeled with the patient's name and designated bilateral fallopian tubes. The specimen consists of bilateral fallopian tubes including fimbrial ends. Each fallopian tube measures 5.0 cm in length and 0.5 cm in diameter. The fallopian tubes are not identified as right or left. Sections reveal unremarkable cut surfaces. One of the fallopian tubes shows a paratubal cyst measuring 2.5 x 2.0 x 1.0cm. The cyst is filled with clear fluid. Rating Examiner sections are submitted in two cassettes as follows: 1- one fallopian tube, 2- second fallopian with paratubal cyst. Received in fixative is one container labeled with the patient's name and designated Endometrial curettings. The specimen consists of multiple irregular fragments of hemorrhagic soft tissue mixed with mucoid tissue that in aggregate measure 3.0 x 2.5 x 0.3 cm. The specimen is totally submitted in one cassette. [facility] 04/12/2024 TC:5 CPT:30411m4,02608
[2024-04-12] MEDS: Bupivacaine 0.25% 30 ML Vial (10:25)
--- NOTE | 2024-04-12 10:51 | PCM.OPRPT ---
Problems Associated Problem List Diagnoses (1) Sterilization: (2) Abnormal uterine bleeding: Report of Operation Date of Procedure: 04/12/24 Pre-Operative Diagnosis: see problem list Post-Operative Diagnosis: same Surgery/Procedure Performed:: laparoscopic bilateral salpingectomy d and c hysteroscopy Description of Surgical Findings:: nl uterus tubes ovaries Surgeon: Angelica Jolley Type of Anesthesia: General and Local Special Medications: none Specimen's removed: tubes emc Drains: none Estimated Blood Loss (mL): 25 Fluids Replaced: crystalloid Description of Procedure: Patient was taken in the operating room and was placed under general anesthesia was prepped and draped in normal sterile fashion in the dorsal lithotomy position. Bladder was drained of clear urine and SCDs were on preoperatively. Uterus was sounded and a uterine manipulator was placed after dilating. Attention was then paid to the abdominal portion of the procedure and the umbilicus was elevated with towel clamps and injected with Marcaine and after a 5 mm incision was made and the Veress needle was entered into the abdomen confirmed to be intra-abdominal with a low opening pressure of less than 5 mmHg. Abdomen was insufflated with CO2 gas and a 5 mm optical trocar was placed under direct visualization. A 5 mm port suprapubically was placed under direct visualization. Uterus was well visualized and bilateral fallopian tubes identified and bilateral tubes were elevated and transecting across the mesosalpinx and the attachment to the uterine corpus bilaterally the tubes were removed without complication. Excellent hemostasis was noted. Fallopian tubes were removed through the lower port site without complication. Liver and upper abdomen were visualized notably within normal limits and no other gross abnormalities were seen in the abdomen. All instruments removed from the abdomen after gas was desufflated. Port sites were closed with 3-0 Monocryl Steri's and op sites were applied. attention paid to vaginal portion, manipulator remove dna dcervix dilated to allow passage of 5 mm hysteroscope, uterine lining visualized and no gross abnormalities seen. curettage performed and tissue sent for analysis. All instruments removed from the vagina and patient was awoken and taken recovery in stable condition. Grafts/Implants Used: none Procedure Start Time: 10:24 Procedure Stop Time: 10:47 Complications none Admit VTE Documentation VTE Present on Admission: No VTE Mechan Device Prophylaxis: SCD's Multi Select Codes Urinary/Genital Urinary/Genital CPT Codes: 16793 Laproscopic BS/O
--- NOTE | 2024-04-12 10:55 | DCINST_ITS ---
Discharge Instructions Diet Discharge Diet: No restrictions Activity Discharge Activity: Return to Normal Activity, May Not Drive (for 2 weeks or while taking narcotic pain meds.), May Shower and May Take a Tub Bath (in 7 days) May resume sexual activity in: 1 week Weight Bearing Status: Full weight bearing Dressing / Incision Call your doctor if your incision/area has: Continuous Slow Oozing, Sudden Increased Bleeding, Increased Pain/ Swelling, Increased Redness and Foul Smelling Discharge Call your doctor if you observe: Fever of 101 or Higher, Using more than 1 pad per hour, Shortness of breath, Chest pain and Uncontrolled pain Suture Line Care: Avoid Pulling/Pushing and Avoid Pinching/Bending Remove Dressing in: 1 week (if present) Cleanse incision/area with: Soap & Water and Keep Dressing Clean & Dry Follow Up Care When: Call to make an appointment with your doctor for a fu/incision check in 1- 2 weeks. Test Results: Test results from this visit will be discussed in further detail at your follow- up appointment, if applicable. Discharge Plan Admission Attending Provider: Angelica Jolley Primary Care Provider: Bertha Nation Instructions Print Language: Ivorian Discharge Orders/Prescriptions Prescriptions: No Action Complete Multivitamin Tablet 1 tab PO DAILY cholecalciferol (vitamin D3) 25 mcg (1,000 unit) capsule 25 mcg PO DAILY cellular complex 2 cap PO BID essential oil 2 drp PO TID Probiotic 3 billion cell capsule 3,000 mmu cells PO DAILY Rx Instructions: administer with a meal MEDAPURE DS 1 sc PO BID BILEX 2 - 3 tab PO DAILY Referrals / Follow Up: Bertha Nation, FREDY-C [Primary Care Provider] - Disposition Disposition (needs filled in before D/C Order can be placed): Home, Self Care
--- NOTE | 2024-04-12 10:57 | PCM.POST.ANE ---
Anesthesia: Postop Eval I Current Vital Signs Temperature: 97.9 F Pulse Rate: 76 Blood Pressure: 90/57 Respiratory Rate: 18 Pulse Ox: 95 Assessment Airway patent: Yes Spontaneous unlabored respirations: Yes nausea: No Vomiting: No Anesthesia Complication: No Fluid Hydration Crystalloid volume administer (ml): 800 Total IV fluid infused: 800 Progress Note Anesthesia document: Postop Eval 1 completed: Yes
--- NOTE | 2024-04-12 12:53 | POSTOPAN2_ITS ---
Anesthesia Postop Eval I Sum Postop Eval Completion status Anesthesia document: Postop Eval 1 completed: Yes Anesthesia Postop Eval I Summary Anesthesia Postop Eval I Summary: Anesthesia Postop Eval I: Assessment Summary Airway patent Yes 04/12/24 10:57 CASING CREW [email or web address].CSIR Spontaneous unlabored Yes 04/12/24 10:57 CASING CREW PUSHER.CSIR respirations Mental status nausea No 04/12/24 10:57 CASING CREW PUSHER.CSIR Vomiting No 04/12/24 10:57 CASING CREW PUSHER.CSIR Anesthesia Postop Eval I: Fluid Summary Crystalloid volume administer 800 04/12/24 10:57 CASING CREW PUSHER.CSIR (ml) Colloids volume administered ( ml) Blood Product volume administered (ml) Total IV fluid infused 800 04/12/24 10:57 CASING CREW PUSHER.CSIR Anesthesia Postop Eval I: Summary Notes Anesthesia Complication No 04/12/24 10:57 CASING CREW PUSHER.CSIR Anesthesia Complication Comment: Post-operative progress note Anesthesia: Postop Eval II Evaluation Mental status: Awake Pain Level: 0 nausea: No Vomiting: No
--- NOTE | 2024-04-12 12:53 | PCM.POSTANE2 ---
Anesthesia Postop Eval I Sum Postop Eval Completion status Anesthesia document: Postop Eval 1 completed: Yes Anesthesia Postop Eval I Summary Anesthesia Postop Eval I Summary: Anesthesia Postop Eval I: Assessment Summary Airway patent Yes 04/12/24 10:57 ELECTRONICS SCALE [email or web address].CSIR Spontaneous unlabored Yes 04/12/24 10:57 ELECTRONICS SCALE TESTER.CSIR respirations Mental status nausea No 04/12/24 10:57 ELECTRONICS SCALE TESTER.CSIR Vomiting No 04/12/24 10:57 ELECTRONICS SCALE TESTER.CSIR Anesthesia Postop Eval I: Fluid Summary Crystalloid volume administer 800 04/12/24 10:57 ELECTRONICS SCALE TESTER.CSIR (ml) Colloids volume administered ( ml) Blood Product volume administered (ml) Total IV fluid infused 800 04/12/24 10:57 ELECTRONICS SCALE TESTER.CSIR Anesthesia Postop Eval I: Summary Notes Anesthesia Complication No 04/12/24 10:57 ELECTRONICS SCALE TESTER.CSIR Anesthesia Complication Comment: Post-operative progress note Anesthesia: Postop Eval II Evaluation Mental status: Awake Pain Level: 0 nausea: No Vomiting: No
== END 2024-04-12 12:53 | disposition home or self-care (01) ==
LOC: SDC 08:40 → AC 08:44
PROVIDERS: PCP Nurse Practitioner; Referring Provider Obstetrics & Gynecology; Visit Provider Obstetrics & Gynecology
PROC: (CPT 58661; principal; 2024-04-12 09:40)
DX: Z30.2 Encounter for sterilization (principal); N93.9 Abnormal uterine and vaginal bleeding, unspecified; N83.8 Other noninflammatory disorders of ovary, fallopian tube and broad ligament
CPT/HCPCS: 58661; 58558; 00840; 81025; 86850; 86900; 86901; 88302; J7120; J2405

== ENCOUNTER 2024-06-23 07:17 | Day surgery (SDC) | payer OTHER, SELFPAY ==
[2024-06-23] VITALS (7 sets, daily range): BP systolic 89–127; BP diastolic 72–80; PULSE 80–102; RESP 16; TEMP 36.5–37.3; O2SAT 95–100; BMI 39.3
--- NOTE | 2024-06-23 | COLBX_PTH ---
PATIENT: ZENY GARCIA LOC: EN U#:[id number] AGE/SX: 44/F ROOM: RE06/23/[address]: Dr. Ernesto Pratt MD : 1980 BED: DIS: 06/23/2024 SPEC #: [id number] RECD: 06/23/24 13:10 STATUS: MARCELLA CONRADO #: [id number] RICHA: 06/23/24 00:[address]: Ernesto Pratt DEPT: SURGICAL PATHOLOGY RECD BY: Donaldo Rudd ENTERED: 06/23/24 13:10 SP TYPE: COLON BX OTHR DR: Bertha Nation, CELL RELINER-C Tissues: A - Descending colon B - Sigmoid colon biopsy Procedures: Surgery Specimen Level IV HEADER OPERATION: Colonoscopy with polypectomy PRE-OP DIAGNOSIS: Change in bowel habits TISSUE SUBMITTED: A- Descending colon polyp, B- Sigmoid colon polyp biopsy MICROSCOPIC DIAGNOSIS A. Descending colon polyp, biopsy: Cauterized fragments of hyperplastic glandular mucosa. B. Sigmoid colon polyp, biopsy: Tubular adenoma. AM. 06/24/2024 MICROSCOPIC DESCRIPTION Slides are reviewed. GROSS DESCRIPTION A. Received in fixative is one container labeled with the patient's name and designated Descending colon polyp. The specimen consists of one irregular fragment of light brewer soft tissue that measures 0.1 x 0.1 x 0.1 cm. The specimen is totally submitted in one cassette. B. Received in fixative is one container labeled with the patient's name and designated Sigmoid colon polyp biopsy. The specimen consists of two irregular fragments of light brewer soft tissue that in aggregate measure 0.3 x 0.2 x 0.1 cm. The specimen is totally submitted in one cassette. 06/23/2024 TC:5 CPT:79488j1
--- NOTE | 2024-06-23 07:45 | HP.PCM_ITS ---
History and Physical Date of Admission: 06/23/24 HPI HPI HPI: Patient is a 43-year-old female who presents for need to schedule diagnostic colonoscopy secondary to change in bowel habits (development of looser stools). They are referred for surgical consultation from Ms. Bertha Salas NP. Patient has not had prior colonoscopy. She shares that she noticed the change in her bowel habits approximately 10 to 12 months ago. Initially she states that it was not occurring all the time but over the last month or so the bowels became really loose to diarrhea. She denies any medication changes around that time. She shares that since she does not have a gallbladder she initially thought it was something that she ate, however, when it persisted she decided to have it addressed. She does state that she went on to be prescribed antibiotics for strep throat at the end of January but even after that time she did not experience an improvement. In addition to the looser stools she describes lots of pressure and pain. She shares that she was seen by Dr. Jolley of [facility] middle of January 2024 and was evaluated for hemorrhoids but none were found. She has children aged 12, 15, and 17 that were all delivered naturally and states that her experience of these bowel movements was the equivalent. Ad ditionally she has noted some itching as well as some blood on the toilet paper and it feels as though she can never wipe enough. She now reports that over the last week or so she has only had 2-3 bouts of diarrhea but still is experiencing bowel movements 2-3 times per day. She does note that she is having bleeding most times. She describes a 25 to 30 pound weight gain over the last year, but is not sure of the source of this weight gain as she has been advised that her thyroid function is normal. She confirms that she has restricted herself from gluten and sugar for some time now. Patient describes new fatigue, but states that she is quite sure this is related to a busy lifestyle and describes going on a trip with her 8 grade child to [facility] before turning around and going with her eldest child to [place] for a mission trip. They do not regularly take fiber supplements, but states there is some use of flax meal which she repeatedly shares that she must be careful with to avoid her becoming bound up. They do not consume significant fiber in their regular diet. Patient has a family history of colon cancer in her paternal grandmother diagnosed in her 80s. The patient is not prescribed anticoagulants/blood thinners. Relevant prior abdominal surgical history includes: None besides cholecystectomy Patient does not have a significant history of GERD/heartburn Lastly patient denies any history of tobacco and shares that she is unable to use NSAIDs as she will get a tingly feeling when taking these medications ROS General General: Yes weight change and fatigue; No appetite, colon cancer, breast cancer or weakness HEENT HEENT: No difficulty swallowing, eye injury, eye surgery, swollen glands or hoarseness Endo Endocrine: Yes thyroid disease; No diabetes mellitus, thyroid cancer, Hair loss, heat intolerance or cold intolerance Skin Skin: No rash or changing moles Musc Musculoskeletal: No back problems, arthritis, rheumatoid arthritis, gout or joint pain Cardio Cardiovascular: No murmur, pacemaker, heart disease, atrial fibrillation, high blood pressure, heart attack, heart stent, palpitations, shortness of breat with exertion or chest pain Psych Psychiatric: No depression, anxiety or hearing voices Resp Respiratory: No shortness of breath, No sleep apnea, No cough, No COPD, No asthma, No emphysema and No wheezing Gastro Gastrointestinal: No abdominal pain, Yes nausea or vomiting, Yes diarrhea, No constipation, Yes blood in stool, No acid reflux, No hemorrhoids, No ulcers, No gallbladder problem and No black,tarry stools Jer Hematologic: No blood thinners, No blood disorders, No bleeding, No anemia and No blood clots Neuro Neurologic: No system reviewed and no additional complaints, except as documented, No as per HPI, No abnormal gait, No abnormal hearing, No abnormal movements, No abnormal speech, No behavioral changes, No burning sensations, No confusion, No convulsions, No disequilibrium, No dizziness, No localized weakness, No frequent falls, No headache(s), No lack of coordination, No loss of vision, No memory loss, Yes numbness, No other visual disturbances, No radicular pain, No restless legs, No sensory deficit, No syncope, Yes tingling, No tremor(s), No weakness and No other Exam Const General: cooperative and anxious Nutritional Appearance: obese Orientation: alert, awake and oriented x3 Resp Effort & Inspection: normal respiratory effort GI Other: Well-healed port site incisions, nondistended, soft, nontender to palpation x 4 quadrants Assessment and Plan Assessment and Plan (1) Change in bowel habits: Status: Chronic Comment: Patient 43-year-old female who makes a consultation visit today related to change in bowel habits that has occurred over the last 10 to 12 months. Incidentally she reports that there may have been some improvement in her symptoms which she describes as overall looser stools. Additionally she has noted some rectal pressure and pain with bowel movements as well as spotting on the toilet tissue. This is a clear departure from her standing history with constipation and there does not appear to be a direct antecedent event or source for the change. Further there is no family history of inflammatory bowel disease or GI diagnoses. I did consider the possibility of microscopic colitis, however, patient denies any prior history of tobacco use and shares that she is unable to use NSAID medications due to a rare intolerance. She was previously evaluated with stool studies via C. difficile and enteric pathogen panel?both of which were normal. We will look to check a few additional stool studies, but at this point I thus recommend proceeding for diagnostic colonoscopy with random colon biopsies. Plan: ? Obtain stool lactoferrin and calprotectin along with ova and parasites ? Plan will be to complete colonoscopy on first mutually agreeable date under local MAC. Pre-procedure prep discussed and paper instructions provided. Patient is also made aware that she will need to have a stunt driver with her the day of the procedure. I have examined the patient the following changes are noted: Patient reports today that she underwent an interval [facility] procedure without difficulty. She also reports that she began restricting dairy from her diet and this has had favorable effects on her GI habits. In fact, she reports that her bowel movement frequency is down to just 1 to 2/day. She also is noticing just a scant amount of bleeding with wiping. Given the latter we have addended her consent to provide permission for completing endoscopic banding of hemorrhoids if needed. She is advised on postprocedural expectations with respect to this additional procedure. She denies any further questions. Will proceed to the endoscopy suite for planned diagnostic colonoscopy.
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
--- NOTE | 2024-06-23 09:50 | OP.COLON_ITS ---
Patient Name: Lydia King Procedure Date: 06/23/2024 8:44 AM Date of : 1980 Age: 44 Procedure: Colonoscopy Indications: Clinically significant diarrhea of unexplained origin Providers: Ernesto Pratt MD Referring MD: Spencer Barone Medicines: See the Anesthesia note for documentation of the administered medications Patient Profile: Last Colonoscopy: none. The patient's first colonoscopy is today. Complications: No immediate complications. Estimated blood loss: Minimal. Procedure: Pre-Anesthesia Assessment: - The heart rate, respiratory rate, oxygen saturations, blood pressure, adequacy of pulmonary ventilation, and response to care were monitored throughout the procedure. After I obtained informed consent, the scope was passed under direct vision. Throughout the procedure, the patient's blood pressure, pulse, and oxygen saturations were monitored continuously. The Colonoscope was introduced through the anus and advanced to the cecum, identified by appendiceal orifice and ileocecal valve. The colonoscopy was somewhat difficult due to a tortuous colon. Successful completion of the procedure was aided by changing the patient to a supine position. The patient tolerated the procedure well. The quality of the bowel preparation was fair. Scope In: 8:59:48 AM Scope Withdrawal Time 0 hours 28 minutes 32 seconds Scope Out: 9:42:59 AM Total Procedure Duration Time 0 hours 43 minutes 11 seconds Findings: Hemorrhoids were found on perianal exam. A 5 mm polyp was found in the descending colon. The polyp was semi-pedunculated. The polyp was removed with a hot snare. Resection and retrieval were complete. Estimated blood loss: none. A 3 mm polyp was found in the sigmoid colon. The polyp was semi-sessile. Biopsies were taken with a cold forceps for histology. Estimated blood loss was minimal. The exam was otherwise without abnormality on direct and retroflexion views. Impression: - Preparation of the colon was fair. - Hemorrhoids found on perianal exam. - One 5 mm polyp in the descending colon, removed with a hot snare. Resected and retrieved. - One 3 mm polyp in the sigmoid colon. Biopsied. - The examination was otherwise normal on direct and retroflexion views. Recommendation: - Discharge patient to home (via wheelchair). - Resume previous diet today. - No aspirin, ibuprofen, naproxen, or other non-steroidal anti-inflammatory drugs for 2 days after biopsy. - Repeat colonoscopy date to be determined after pending pathology results are reviewed for surveillance based on pathology results. - Telephone my office for pathology results in 1 week. Procedure Code(s): --- Professional --- 62223, Colonoscopy, flexible; with removal of tumor(s), polyp(s), or other lesion(s) by snare technique 82118, 59, Colonoscopy, flexible; with biopsy, single or multiple Diagnosis Code(s): --- Professional --- K64.9, Unspecified hemorrhoids D12.4, Benign neoplasm of descending colon D12.5, Benign neoplasm of sigmoid colon R19.7, Diarrhea, unspecified CPT copyright 2021 [employer]. All rights reserved. The codes documented in this report are preliminary and upon circulation assistant review may be revised to meet current compliance requirements. Ernesto Pratt MD 06/23/2024 9:50:39 AM This report has been signed electronically. Number of Addenda: 0 Note Initiated On: 06/23/2024 8:44 AM
--- NOTE | 2024-06-23 09:51 | OP.CCLET_ITS ---
06/23/2024 Spencer Barone Re : Colonoscopy procedure for Lydia King Dear Rios This procedure was performed on June. My impressions and recommendations are as follows: Impressions : - Preparation of the colon was fair. - Hemorrhoids found on perianal exam. - One 5 mm polyp in the descending colon, removed with a hot snare. Resected and retrieved. - One 3 mm polyp in the sigmoid colon. Biopsied. - The examination was otherwise normal on direct and retroflexion views. Recommendations : - Discharge patient to home (via wheelchair). - Resume previous diet today. - No aspirin, ibuprofen, naproxen, or other non-steroidal anti-inflammatory drugs for 2 days after biopsy. - Repeat colonoscopy date to be determined after pending pathology results are reviewed for surveillance based on pathology results. - Telephone my office for pathology results in 1 week. My findings are described in the full procedure note, which is enclosed. If I can be of further assistance, please feel free to contact me at Doctor phone number(s): , Work: . Sincerely, Ernesto Pratt MD 06/23/2024 9:50:39 AM This report has been signed electronically.
--- NOTE | 2024-06-23 09:54 | PCM.POST.ANE ---
Anesthesia: Postop Eval I Current Vital Signs Temperature: 99.1 F Pulse Rate: 99 Blood Pressure: 127/74 Respiratory Rate: 16 Pulse Ox: 99 Oxygen Delivery Method: Room Air Assessment Airway patent: Yes Spontaneous unlabored respirations: Yes Mental status: Asleep nausea: No Vomiting: No Anesthesia Complication: No Fluid Hydration Crystalloid volume administer (ml): 60 Total IV fluid infused: 60 Progress Note Anesthesia document: Postop Eval 1 completed: Yes
--- NOTE | 2024-06-23 10:29 | PCM.POSTANE2 ---
Anesthesia Postop Eval I Sum Postop Eval Completion status Anesthesia document: Postop Eval 1 completed: Yes Anesthesia Postop Eval I Summary Anesthesia Postop Eval I Summary: Anesthesia Postop Eval I: Assessment Summary Airway patent Yes 06/23/24 09:54 [email or web address] Spontaneous unlabored Yes 06/23/24 09:54 [email or web address] respirations Mental status Asleep 06/23/24 09:54 [email or web address] nausea No 06/23/24 09:54 [email or web address] Vomiting No 06/23/24 09:54 [email or web address] Anesthesia Postop Eval I: Fluid Summary Crystalloid volume administer 60 06/23/24 09:54 [email or web address] (ml) Colloids volume administered ( ml) Blood Product volume administered (ml) Total IV fluid infused 60 06/23/24 09:54 [email or web address] Anesthesia Postop Eval I: Summary Notes Anesthesia Complication No 06/23/24 09:54 [email or web address] Anesthesia Complication Comment: Post-operative progress note Anesthesia: Postop Eval II Evaluation Mental status: Awake Pain Level: 0 nausea: No Vomiting: No
== END 2024-06-23 11:25 | disposition home or self-care (01) ==
LOC: EN 07:18 → AC 07:20
PROVIDERS: PCP Nurse Practitioner; Referring Provider Nurse Practitioner; Visit Provider Surgery
PROC: 0DJD8ZZ Inspection of Lower Intestinal Tract, Via Natural or Artificial Opening Endoscopic (ICD-10-PCS; CPT 45378; principal; 2024-06-23 08:10)
DX: D12.5 Benign neoplasm of sigmoid colon (principal); K64.9 Unspecified hemorrhoids; Z87.891 Personal history of nicotine dependence; Z80.0 Family history of malignant neoplasm of digestive organs; R19.7 Diarrhea, unspecified; K92.2 Gastrointestinal hemorrhage, unspecified; D12.4 Benign neoplasm of descending colon; R73.03 Prediabetes; K21.9 Gastro-esophageal reflux disease without esophagitis; Z79.899 Other long term (current) drug therapy
CPT/HCPCS: 45385; 45380; 88305; A4216; J2405

== ENCOUNTER → 2024-07-12 | Outpatient (CLI) | payer OTHER, SELFPAY ==
--- NOTE | 2024-07-12 12:56 | ECHOD_ITS ---
Reason For Study: FAMILY HISTORY AORTIC DILATION Procedure This was a 2D Doppler, Color Flow transthoracic echocardiogram. Exam performed in department. Left Ventricle Normal LV size. Left ventricular systolic function is normal. The left ventricular ejection fraction is 60 %. Normal diastology for age. No regional wall motion abnormalities noted. Right Ventricle Normal RV size. Normal systolic function. Atria Normal left atrium. Normal right atrium. Mitral Valve Normal mitral valve. Tricuspid Valve Normal tricuspid valve. Aortic Valve Trisinus/trileaflet aortic valve. Pulmonic Valve Normal pulmonic valve. Great Vessels Normal aortic root. Pericardium/Pleural No pericardial effusion. MMode/2D Measurements & Calculations LVIDd: 4.4 cm IVSd: 1.0 cm LVOT diam: 2.1 cm LVIDs: 2.7 cm LVPWd: 0.93 cm LVOT area: 3.6 cm2 RVDd: 3.4 cm FS: 39.3 % asc Aorta Diam: 3.1 cm LAV(MOD-bp): 42.7 ml LVAd ap4: 24.9 cm2 LAV(MOD-bp) Indexed: 20.3 ml/m2 LVLd ap4: 7.4 cm LAV(MOD-sp2): 34.5 ml EDV(MOD-sp4): 68.2 ml LAV(MOD-sp4): 49.5 ml EDV(sp4-el): 71.3 ml LVAs ap4: 12.6 cm2 LVLs ap4: 5.9 cm ESV(MOD-sp4): 23.1 ml ESV(sp4-el): 22.9 ml EF(MOD-sp4): 66.2 % EF(sp4-el): 67.8 % LVAd ap2: 25.7 cm2 SV(MOD-sp4): 45.1 ml SV(MOD-sp2): 45.7 ml LVLd ap2: 7.5 cm SI(MOD-sp4): 21.5 ml/m2 SI(MOD-sp2): 21.8 ml/m2 EDV(MOD-sp2): 72.1 ml EDV(sp2-el): 75.2 ml LVAs ap2: 13.5 cm2 LVLs ap2: 6.3 cm ESV(MOD-sp2): 26.4 ml ESV(sp2-el): 24.5 ml EF(MOD-sp2): 63.3 % SV(sp4-el): 48.4 ml Ao sinus diam: 3.[address] Junction: 2.7 cm LA dimension(2D): 3.5 cm LA A4 area: 17.2 cm2 RA A4 area: 10.9 cm2 TAPSE: 1.9 cm Time Measurements MV dec time: 0.16 sec Doppler Measurements & Calculations MV E max maxim: 67.1 cm/sec Lat Peak E' Maxim: 12.8 cm/sec Med Peak E' Maxim: 9.6 cm/sec MV A max maxim: 61.8 cm/sec E/E' lat: 5.2 E/E' med: 7.0 MV E/A: 1.1 MV dec slope: 418.6 cm/sec2 Ao V2 max: 121.0 cm/sec LV V1 max: 112.0 cm/sec Ao max P.9 mmHg LV V1 max P.0 mmHg Ao V2 mean: 82.1 cm/sec LV V1 mean P.4 mmHg Ao mean P.1 mmHg LV V1 mean: 72.6 cm/sec Ao V2 VTI: 28.1 cm LV V1 VTI: 21.8 cm AV (velocity ratio): 0.77 KELLY(I,D): 2.8 cm2 KELLY(V,D): 3.3 cm2 SV(LVOT): 78.1 ml PA V2 max: 105.0 cm/sec PA max PG (full): 1.2 mmHg ECHO/Echo Complete Interpretation Summary Normal LV size. Left ventricular systolic function is normal. The left ventricular ejection fraction is 60 %. Normal diastology for age. Ordering Physician: Bertha Nation Referring Physician: Bertha Nation Performed By: Polina Bridges, [facility]
--- NOTE | 2024-07-12 12:56 | CDU_ITS ---
Reason For Study: Family HX of FMD/CAD Rt. Velocities/BP Lt. Velocities/BP Prox CCA 92.8/21.6 cm/sec. Prox CCA 77.8/15.7 cm/sec. Mid CCA 121.6/30.3 cm/sec. Mid CCA 97.9/24.8 cm/sec. Dist CCA 107.0/30.3 cm/sec. Dist CCA 96.1/26.7 cm/sec. Prox ICA 101.6/30.3 cm/sec. Prox ICA 71.0/27.0 cm/sec. Mid ICA 94.1/32.1 cm/sec. Mid ICA 56.7/24.8 cm/sec. Dist ICA 63.3/27.0 cm/sec. Dist ICA 72.1/30.3 cm/sec. Rt. ICA/CCA = 0.8. Lt. ICA/CCA = 0.7. Prox ECA 148.4/21.1 cm/sec. Prox ECA 66.7/12.8 cm/sec. Rt. Vert. 43.7/14.2 cm/sec. Lt. Vert. 39.3/12.8 cm/sec. Right Extracranial There is intimal thickening but no significant atherosclerotic plaque noted in the right common carotid artery. There is intimal thickening but no significant atherosclerotic plaque noted in the right internal carotid artery. There is intimal thickening but no significant atherosclerotic plaque noted in the right external carotid artery. Antegrade flow is noted in the right vertebral artery. There is intimal thickening but no significant atherosclerotic plaque noted in the right bulb. Left Extracranial There is intimal thickening but no significant atherosclerotic plaque noted in the left common carotid artery. The left internal carotid artery is not well visualized. There is intimal thickening but no significant atherosclerotic plaque noted in the left external carotid artery. Antegrade flow is noted in the left vertebral artery. There is intimal thickening but no significant atherosclerotic plaque noted in the left bulb. Procedure Carotid Duplex [id number]. This is a Carotid Duplex examination using B-mode, color flow and specral Doppler. The exam was diagnostic. Exam performed in department. VL/Carotid Duplex Ultrasound Interpretation Summary Normal right extracranial internal carotid. Normal left extracranial internal carotid. Patent and antegrade vertebrals bilaterally. Ordering Physician: Bertha Nation Referring Physician: Bertha Nation Performed By: Onur Eli RVT
== END | disposition home or self-care (01) ==
PROVIDERS: PCP Nurse Practitioner; Referring Provider Nurse Practitioner; Visit Provider Nurse Practitioner
DX: E66.9 Obesity, unspecified (principal); Z82.49 Family history of ischemic heart disease and other diseases of the circulatory system
CPT/HCPCS: 93306; 93880

== ENCOUNTER → 2024-09-26 | Outpatient (CLI) | payer OTHER, SELFPAY ==
--- NOTE | 2024-09-26 08:20 | BI_ITS ---
MAMMOGRAPHY - BILATERAL SCREENING REASON FOR EXAM: Female, 44 years old. Routine annual screening examination. PERTINENT HISTORY: Non-contributory. TECHNIQUE: Digital bilateral breast maurilio (3D mammographic acquisition) in the CC and MLO projections. 2-D mediolateral oblique (MLO) and craniocaudad (CC) views of both breasts were obtained. CAD: Full Field Digital Mammography with Computer Added Detection was performed. COMPARISON: Comparison is made with prior study dated March 22, 2024 and September 18, 2022. FINDINGS: Breast Composition: There are scattered areas of fibroglandular density. There are no dominant masses or suspicious calcifications. No other significant abnormalities are identified. There has been no significant change since the prior study. BI/SCRN MAMM (CAD)W/MAURILIO BILAT IMPRESSION: Stable bilateral screening mammogram. Yearly follow-up mammogram recommended. (A) ASSESSMENT CATEGORY: BIRADS Category 1: Negative. A letter regarding these results will be sent to the patient by the facility within 30 days. Approximately 10% of breast cancers are not detected by mammography. A normal mammogram should not delay biopsy of a clinically suspicious abnormality. [id number] Electronically Signed: Clay Garland MD at 9:15 EST ,
== END | disposition home or self-care (01) ==
LOC: OPBI 08:19
PROVIDERS: PCP Nurse Practitioner; Referring Provider Obstetrics & Gynecology; Visit Provider Obstetrics & Gynecology
DX: Z12.31 Encounter for screening mammogram for malignant neoplasm of breast (principal)
CPT/HCPCS: 77063; 77067

== ENCOUNTER → 2025-04-12 | Outpatient (CLI) | payer OTHER, SELFPAY ==
[2025-04-12 11:02] LABS: Hematocrit 42.4 % (37-47); Hemoglobin 13.6 g/dL (12.0-15.0); Immature Granulocytes Count 0.020 X10^3/uL (0.0-0.0); Mean Corp Hgb Conc 32.1 g/dL (32-36); Mean Corpuscular Volume 82.8 fL (81-99); Mean Platelet Vol. 11.2 fl (6.2-12.0); NRBC Flagged by Analyzer 0 % (0-5); Platelet Count 282 K/mm3 (150-450); RBC Distribution Width CV 13.7 % (11.6-14.6); RBC Distribution Width SD 41.7 fl (35.1-43.9); Red Blood Count 5.12 M/mm3 (4.2-5.4); White Blood Count 7.2 K/mm3 (4.4-11.0)
[2025-04-12 12:12] LABS: AST(SGOT) 17 U/L (<=31); Alanine Aminotransfer ALT/SGPT 16 U/L (<=34); Albumin, Serum 4.1 g/dL (3.5-5.0); Alkaline Phosphatase 113 U/L (35-104); Anion Gap 11 (5-15); BUN 15 mg/dL (4-19); BUN/Creat Ratio 20.6 RATIO (10-20); Calcium,Total 9.5 mg/dL (7.6-11.0); Carbon Dioxide 26.2 mmol/L (21.0-32.0); Chloride 104 mmol/L (98-108); Ferritin 16 ng/mL (22-378); Globulin 3.0 g/dL (2.2-4.2); Glucose 96 mg/dL (70-99); Potassium 4.5 mmol/L (3.3-5.1)
[2025-04-12 14:21] LABS: Iron 34 ug/dL (50-170)
[2025-04-12 15:27] LABS: Iron Binding Capacity,Total 415 ug/dL (250-450); Iron Binding Capacity,Unsat 381 ug/dL (228-428)
== END | disposition home or self-care (01) ==
LOC: BWCLAB 09:40
PROVIDERS: Visit Provider Obstetrics & Gynecology
DX: N93.9 Abnormal uterine and vaginal bleeding, unspecified (principal); R42 Dizziness and giddiness
CPT/HCPCS: 36415; 80053; 82728; 83036; 83540; 83550; 84439; 84443; 85025

== ENCOUNTER → 2025-05-08 | Outpatient (CLI) | payer OTHER, SELFPAY ==
[2025-05-08 10:34] LABS: Hematocrit 42.0 % (37-47); Hemoglobin 13.8 g/dL (12.0-15.0); Immature Granulocytes Count 0.020 X10^3/uL (0.0-0.0); Mean Corp Hgb Conc 32.9 g/dL (32-36); Mean Corpuscular Volume 82.4 fL (81-99); Mean Platelet Vol. 10.6 fl (6.2-12.0); NRBC Flagged by Analyzer 0 % (0-5); Platelet Count 294 K/mm3 (150-450); RBC Distribution Width CV 15.0 % (11.6-14.6); RBC Distribution Width SD 44.8 fl (35.1-43.9); Red Blood Count 5.10 M/mm3 (4.2-5.4); White Blood Count 6.8 K/mm3 (4.4-11.0)
[2025-05-08 14:16] LABS: Ferritin 24 ng/mL (22-378); Iron 41 ug/dL (50-170); Iron Binding Capacity,Total 388 ug/dL (250-450); Iron Binding Capacity,Unsat 347 ug/dL (228-428)
== END | disposition home or self-care (01) ==
LOC: BWCLAB 09:38
PROVIDERS: Referring Provider Obstetrics & Gynecology; Visit Provider Obstetrics & Gynecology
DX: N93.9 Abnormal uterine and vaginal bleeding, unspecified (principal); N80.03 Adenomyosis of the uterus
CPT/HCPCS: 36415; 82728; 83540; 83550; 85025

== ENCOUNTER → 2025-05-29 | Outpatient (CLI) | payer OTHER, SELFPAY ==
--- NOTE | 2025-05-29 09:10 | US_ITS ---
PROCEDURE: PELVIC W/ TRANSVAGINAL 05/29/2025 REASON FOR EXAM: ABNORMAL UTERINE BLEEDING. Adenomyosis 4, Para 3, Ab 1. Bilateral salpingectomy and D and C TECHNIQUE: Procedure Code: USPELTVAG Modality: US Procedure: PELVIC W/ TRANSVAGINAL. Transabdominal and endovaginal pelvic sonography were performed. COMPARISON: Pelvic ultrasound dated 02/18/2024 FINDINGS: Measurements: Uterus: 10.5 x 6.6 x 4.1 with a volume of mL Endometrial Thickness: 5 mm Right Ovary: 2.8 x 1.7 x 1.6 with a volume of mL. Left Ovary: 2.1 x 1.7 x 0.9 with a volume of mL. Uterus: The uterus is anteverted and anteflexed. The myometrium has heterogeneous echotexture which may be due to adenomyosis. Nabothian cysts are seen within the cervix. Endometrium: The endometrium is hyperechoic and has a heterogeneous echotexture. Right ovary: Size, contour, and echogenicity are within normal limits. There are no masses. Left ovary: Size, contour, and echogenicity are within normal limits. There are no masses. Other: The urinary bladder measures 12.1 x 10.3 x 7.0 cm. Bladder volume is 457.1 mL. The bladder wall is smooth. The bladder wall is not abnormally thickened. There are no filling defects seen within the urinary bladder. US/Pelvic w/ Transvaginal IMPRESSION: The myometrium of the uterus has a heterogeneous echotexture which may be due t o adenomyosis. Endometrial stripe thickness measures 5 mm. Normal appearance to both ovaries. Reading Location: [id number]
== END | disposition home or self-care (01) ==
PROVIDERS: Referring Provider Obstetrics & Gynecology; Visit Provider Obstetrics & Gynecology
DX: N93.9 Abnormal uterine and vaginal bleeding, unspecified (principal); N80.03 Adenomyosis of the uterus
CPT/HCPCS: 76830; 76856

== ENCOUNTER → 2025-07-25 | Outpatient (CLI) | payer OTHER, SELFPAY ==
[2025-07-25 06:55] LABS: Hematocrit 41.9 % (37-47); Hemoglobin 13.9 g/dL (12.0-15.0); Immature Granulocytes Count 0.030 X10^3/uL (0.0-0.0); Mean Corp Hgb Conc 33.2 g/dL (32-36); Mean Corpuscular Volume 85.2 fL (81-99); Mean Platelet Vol. 10.6 fl (6.2-12.0); NRBC Flagged by Analyzer 0 % (0-5); Platelet Count 252 K/mm3 (150-450); RBC Distribution Width CV 14.0 % (11.6-14.6); RBC Distribution Width SD 42.9 fl (35.1-43.9); Red Blood Count 4.92 M/mm3 (4.2-5.4); White Blood Count 8.2 K/mm3 (4.4-11.0)
[2025-07-25 07:33] LABS: Ferritin 54 ng/mL (22-378); Iron 70 ug/dL (50-170); Iron Binding Capacity,Total 380 ug/dL (250-450); Iron Binding Capacity,Unsat 310 ug/dL (228-428)
== END | disposition home or self-care (01) ==
LOC: LAB 06:35
PROVIDERS: PCP Physician Assistant; Referring Provider Obstetrics & Gynecology; Visit Provider Obstetrics & Gynecology
DX: N93.9 Abnormal uterine and vaginal bleeding, unspecified (principal); N80.03 Adenomyosis of the uterus; E07.9 Disorder of thyroid, unspecified
CPT/HCPCS: 36415; 82728; 83540; 83550; 84443; 85025

== ENCOUNTER → 2025-07-31 | Outpatient (CLI) | payer OTHER, SELFPAY ==
--- NOTE | 2025-07-31 16:15 | EMB_PTH ---
PATIENT: ZENY GARCIA LOC: [facility] U#:[id number] AGE/SX: 45/F ROOM: RE07/31/[address]: Dr. Angelica Jolley MD : 1980 BED: DIS: 07/31/2025 SPEC #: [id number] RECD: 07/31/25 16:35 STATUS: MARCELLA CONRADO #: [id number] RICHA: 07/31/25 16:[address]: Angelica Jolley DEPT: SURGICAL PATHOLOGY RECD BY: Taiwo Pineda Tissues: A - Endometrium, NOS Procedures: Surgery Specimen Level IV HEADER OPERATION: Endometrial biopsy PRE-OP DIAGNOSIS: Abnormal uterine bleeding TISSUE SUBMITTED: A- Endometrial tissue MICROSCOPIC DIAGNOSIS A. Endometrium, biopsy: * Secretory endometrium MICROSCOPIC DESCRIPTION Slides are reviewed. GROSS DESCRIPTION A. Received in formalin labeled the patient's name and date of is a 1.9 x 1.4 x 0.3 cm aggregate of brewer to light brown cylindrical tissue fragments. Entirely submitted in 1 cassette. [place] 08/01/2025PT:[id number]
[2025-08-03 13:08] LABS: HPV APTIMA, High Risk Negative (Negative)
== END | disposition home or self-care (01) ==
LOC: LABSPEC 17:13
PROVIDERS: Referring Provider Obstetrics & Gynecology; Visit Provider Obstetrics & Gynecology
DX: Z12.4 Encounter for screening for malignant neoplasm of cervix (principal); N93.9 Abnormal uterine and vaginal bleeding, unspecified
CPT/HCPCS: 87624; 88175; 88305; G0145

== ENCOUNTER 2025-08-22 14:50 | Observation (INO) | payer OTHER, SELFPAY ==
--- NOTE | 2025-08-08 09:28 | EKG12_ITS ---
Test Reason : PREOP Blood Pressure : */* mmHG Vent. Rate : 73 BPM Atrial Rate : 73 BPM P-R Int : 174 ms QRS Dur : 84 ms QT Int : 408 ms P-R-T Axes : 29 21 11 degrees QTcB Int : 449 ms Normal sinus rhythm Normal ECG Confirmed by ANDREY SANCHEZ, CASEY ([id number]), graphic editor KAREN STRINGER ([id number]) on 08/09/2025 9:04:36 AM Referred By: Angelica Jolley Confirmed By: CASEY BALDERAS MD
[2025-08-08 10:01] LABS: Hematocrit 43.0 % (37-47); Hemoglobin 14.1 g/dL (12.0-15.0); Mean Corp Hgb Conc 32.8 g/dL (32-36); Mean Corpuscular Volume 85.3 fL (81-99); Mean Platelet Vol. 10.6 fl (6.2-12.0); Platelet Count 268 K/mm3 (150-450); RBC Distribution Width CV 13.5 % (11.6-14.6); RBC Distribution Width SD 42.1 fl (35.1-43.9); Red Blood Count 5.04 M/mm3 (4.2-5.4); White Blood Count 6.6 K/mm3 (4.4-11.0)
[2025-08-08 10:33] LABS: AST(SGOT) 23 U/L (<=31); Alanine Aminotransfer ALT/SGPT 21 U/L (<=34); Albumin, Serum 4.1 g/dL (3.5-5.0); Alkaline Phosphatase 104 U/L (35-104); Anion Gap 11 (5-15); BUN 11 mg/dL (4-19); BUN/Creat Ratio 13.5 RATIO (10-20); Calcium,Total 9.3 mg/dL (7.6-11.0); Carbon Dioxide 24.9 mmol/L (21.0-32.0); Chloride 104 mmol/L (98-108); Globulin 2.9 g/dL (2.2-4.2); Glucose 99 mg/dL (70-99); Magnesium 2.0 mg/dL (1.5-2.2); Potassium 4.0 mmol/L (3.3-5.1)
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
[2025-08-08 17:57] LABS: Xtra Tube EP Lab EXTRA TUBE
[2025-08-22] VITALS (19 sets, daily range): BP systolic 112–128; BP diastolic 62–90; PULSE 64–94; RESP 16–18; TEMP 36.2–37.1; O2SAT 95–100; BMI 44.6
[2025-08-22] MEDS: Lactated Ringers 1,000 ML 40 ML IV (09:05)
[2025-08-22] MEDS: Magnesium 1 GM over 15 mins IV (09:14)
[2025-08-22] MEDS: Scopolamine 1mg/72hr Patch 1 PATCH TD (09:15)
[2025-08-22 09:26] LABS: Hemoglobin 14.7 g/dL (12.0-15.0); Red Blood Count 5.21 M/mm3 (4.2-5.4); White Blood Count 8.3 K/mm3 (4.4-11.0)
[2025-08-22] MEDS: metroNIDAZOLE 500 MG/100 ML BAG 100 MG IV (09:26)
[2025-08-22 09:27] LABS: Hematocrit 43.8 % (37-47); Mean Corp Hgb Conc 33.6 g/dL (32-36); Mean Corpuscular Volume 84.1 fL (81-99); Mean Platelet Vol. 10.5 fl (6.2-12.0); Platelet Count 283 K/mm3 (150-450); RBC Distribution Width CV 13.4 % (11.6-14.6); RBC Distribution Width SD 41.1 fl (35.1-43.9)
--- NOTE | 2025-08-22 10:00 | HYST_PTH ---
PATIENT: ZENY GARCIA LOC: [facility] U#:[id number] AGE/SX: 45/F ROOM: WI324 RE08/22/[address]: Dr. Angelica Jolley MD : 1980 BED: 1 DIS: 08/23/2025 SPEC #: [id number] RECD: 08/22/25 15:03 STATUS: MARCELLA CAMP #: [id number] RICHA: 08/22/25 10:[address]: Angelica Jolley DEPT: SURGICAL PATHOLOGY RECD BY: Ciara Lawson ENTERED: 08/23/25 06:40 SP TYPE: HYSTERECT OTHR DR: SUZANNA Montiel Tissues: Uterus, NOS Procedures: Surgery Specimen Level V HEADER OPERATION: ERAS, hysterectomy, LAVH PRE-OP DIAGNOSIS: Abnormal uterine bleeding due to adenomyosis, enlarged uterus TISSUE SUBMITTED: A- Cervix, uterus MICROSCOPIC DIAGNOSIS A. Uterus and cervix, hysterectomy: - Cervix: dilated endocervical glands. - Endometrium: proliferative phase. - Myometrium: adenomyosis. MICROSCOPIC DESCRIPTION Slides are reviewed. GROSS DESCRIPTION A. Received in formalin labeled with the patient's name and date of . Designated as cervix, uterus is a 151.5 g, 9.3 x 6.7 x 4.8 cm uterus devoid of adnexa. The serosa is brewer-pink to red and somewhat granular with patchy, loosely adherent blood clot. The attached cervix is brewer-pink to red, erythematous and measures 3.8 x 3.5 cm; the 1.4 cm os is probe patent. Mucus-containing cysts are present, measuring up to 1.5 cm. The specimen is oriented using the posterior peritoneal reflection and is inked as follows: [id number] Opening reveals a 6.0 x 2.7 cm endometrial canal lined by dark red, somewhat lush endometrium measuring up to 0.3 cm thick. The myometrium is brewer-pink and trabeculated measuring up to 2.4 cm thick. Definitive lesions are not identified. Claims Customer Service Representative sections are submitted as follows: A1: Anterior cervixA2: Posterior cervixA3: Anterior endomyometriumA4: Posterior endomyometrium [place] 08/22/2025PT:[id number]
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
[2025-08-22] MEDS: Lidocaine 1% (5 ml sdv) 5 ML Vial IV (11:32)
[2025-08-22] MEDS: Cefazolin 1 GM/5 ML Vial 2 GM IV (11:45)
[2025-08-22] MEDS: fentaNYL 100 MCG/2 ML Ampul 300 MCG IV (13:57)
--- NOTE | 2025-08-22 14:47 | PCM.POST.ANE ---
Anesthesia: Postop Eval I Current Vital Signs Temperature: 97.9 F Pulse Rate: 89 Blood Pressure: 120/82 Respiratory Rate: 16 Pulse Ox: 95 Oxygen Delivery Method: Nasal Cannula Oxygen Flow Rate (L/min): 2 Assessment Airway patent: Yes Spontaneous unlabored respirations: Yes Mental status: Calm nausea: No Vomiting: No Anesthesia Complication: No Fluid Hydration Crystalloid volume administer (ml): 2,200 Total IV fluid infused: 2,200 Progress Note Anesthesia document: Postop Eval 1 completed: Yes
--- NOTE | 2025-08-22 14:52 | OP.PCM_ITS ---
Procedures Urinary/Genital 52xxx-59xxx: [id number] LAVH+BS/O <250gr Uterus Operative Report (Standard) Operative Information Date of Procedure: 08/22/25 Pre-Operative Diagnosis: aub enlarged uterus Post-Operative Diagnosis: same plus pelvic congestion Surgery/Procedure Performed: lavh investigator utility bill complaints: Yes Stock Drier Tender: Graham Kincaid Tasks completed by senior court office assistant: Opening & closing, Trocar and Retracting Additional psychological assistant?: No Type of Anesthesia: General RN Documented Start/Stop Times: Operation Date: 08/22/25 10:00 Case Time Into Pre-Op 08/22/25 08:06 Out of Pre-Op 08/22/25 11:10 Anesthesia Start 08/22/25 11:23 Into Room 08/22/25 11:23 Procedure Start 08/22/25 12:05 Procedure End 08/22/25 14:25 Anesthesia End 08/22/25 14:36 Out of Room 08/22/25 14:36 Procedure Start Time: 12:05 Procedure Stop Time: 14:25 Select all DRAINS/GRAFTS/IMPLANTS that apply: Drains (lemus) Drain details: lemus removed at end of procedure Estimated Blood Loss: 600 Fluids Replaced: crystalloid Specimen collected: Yes Description of specimen(s) removed: uterus Description of surgery: Patient received preoperative antibiotics and SCDs were on preoperatively. Patient was taken back to the operating room and placed in the dorsal lithotomy position. General anesthesia was induced and patient was prepped and draped in normal sterile fashion. Uterine manipulator was placed inside the uterus and Lemus catheter placed in the bladder. The umbilicus was grasped with towel clamps and an intraumbilical incision was made after injecting with quarter percent Marcaine and a Veress needle entered into the abdomen confirmed to be intra-abdominal with a low opening pressure. Abdomen was insufflated with CO2 gas and the Veress needle removed and the 5 mm trocar was placed under direct visualization without complication. Right and left lower quadrants were transilluminated and injected with quarter percent Marcaine and 5 mm ports placed under direct visualization. Pelvis was well visualized see operative findings for additional information. The utero ovarian ligament was transected bilaterally. The broad ligament was opened up by transecting the round ligament bilaterally and skeletonizing the uterine vessels bilaterally, and creating a bladder flap using the LigaSure device. Tissue was noted to be significantly thickened with large vasculature and pelvic congestion. The uterine arteries were transected bilaterally with good visualization of the bladder and the ureters were seen to be inferior lateral to the operative area. Attention was then paid to the vaginal portion of the procedure and the cervix was grasped with Katia clamps and circumferentially injected with dilute vasopressin. A circumferential incision was made and the vaginal mucosa was mobilized off posteriorly and the cul-de-sac entered into sharply and a longneck speculum placed. The anterior cul-de-sac was then identified and entered into sharply. The uterosacral ligaments were clamped cut and suture ligated with 0 Monocryl bilaterally followed by the cardinal ligaments which were clamped cut and suture ligated bilaterally with 0 Monocryl. The uterus serially descended and was removed without difficulty with minimal morcellation. Pelvic sidewall pedicles were checked and noted to have excellent hemostasis after additional sutures were placed. The vaginal mucosa was reapproximated incorporating the posterior peritoneum. This was reapproximated using 0 Vicryl [id number] sutures. Excellent hemostasis was noted. Attention paid to the abdominal portion of the procedure again. The pelvis and cul-de-sac was well visualized and no significant active bleeding noted but some raw areas were seen on the peritoneum and therefore surgiflow was applied. Pressure was taken down and the areas visualized and noted to have excellent hemostasis. All ports were removed under direct visualization without complication and the abdomen was desufflated of air. The instruments removed from the abdomen and the vagina vaginal sweep was negative. Port sites on the abdomen were closed with 4-0 Monocryl interrupted sutures and Steri's and windows were applied. She was awoken and taken recovery in stable condition. Surgical Findings: pelvic congestion enlarged uterus Complications Complications: No
--- NOTE | 2025-08-22 14:58 | DCINST_ITS ---
Discharge Instructions DC O2, CPAP, BIPAP needs Home O2 Discharge instructions: No Dressing / Incision May resume sexual activity in: 6 weeks Weight Bearing Status: Full weight bearing Dressing / Incision Call your doctor if your incision/area has: Continuous Slow Oozing, Sudden Increased Bleeding, Increased Pain/ Swelling, Increased Redness and Foul Smelling Discharge Call your doctor if you observe: Fever of 101 or Higher, Using more than 1 pad per hour, Shortness of breath, Chest pain and Uncontrolled pain Suture Line Care: Avoid Pulling/Pushing and Avoid Pinching/Bending Remove Dressing in: 1 week (if present) Cleanse incision/area with: Soap & Water and Keep Dressing Clean & Dry Follow Up Care Please Follow Up With: Angelica Jolley MD When: Call to make an appointment with your doctor for a postop visit in 2 and 6 weeks. Test Results: Test results from this visit will be discussed in further detail at your follow- up appointment, if applicable. Discharge Plan Admission Admit Date/Time: 08/22/25 14:50 Attending Provider: Angelica Jolley Primary Care Provider: Garrison Singletary Discharge Orders/Prescriptions Prescriptions: New naproxen 500 mg tablet 500 mg PO BID PRN PRN (Reason: Pain) Qty: 30 1RF oxycodone 5 mg tablet 5 mg PO BID PRN (Reason: pain) 7 Days Qty: 14 0RF No Action progon B 8 gtt PO DAILY Patient Comments: during luteal phase magnesium glycinate 500 mg PO DAILY beef liver 3,000 mg PO DAILY FERROUS GLUCONATE CALCIUM VITAMIN C 1 tab PO DAILY BIONUTRIENT 2 cap PO TID cod liver oil Capsule 1 cap PO BID Patient Comments: WILL STOP 08/07/25 FOR SURGERY ON calcium glucarate-diindolylmet 250-100 mg capsule 2 cap PO DAILY VB6 P5P 100 mg/gram powder 100 mg PO DAILY ascorbic acid (vitamin C) [Vitamin C] 125 mg tablet,chewable 250 mg PO DAILY betaine HCl 300 mg tablet 600 mg PO TID
--- NOTE | 2025-08-22 15:34 | POSTOPAN2_ITS ---
Anesthesia Postop Eval I Sum Postop Eval Completion status Anesthesia document: Postop Eval 1 completed: Yes Anesthesia Postop Eval I Summary Anesthesia Postop Eval I Summary: Anesthesia Postop Eval I: Assessment Summary Airway patent Yes 08/22/25 14:48 [email or web address] Spontaneous unlabored Yes 08/22/25 14:48 [email or web address] respirations Mental status Calm 08/22/25 14:48 [email or web address] nausea No 08/22/25 14:48 STAIN [email or web address] Vomiting No 08/22/25 14:48 [email or web address] Anesthesia Postop Eval I: Fluid Summary Crystalloid volume administer 2,200 08/22/25 14:48 STAIN [email or web address] (ml) Colloids volume administered ( ml) Blood Product volume administered (ml) Total IV fluid infused 2,200 08/22/25 14:48 STAIN [email or web address] Anesthesia Postop Eval I: Summary Notes Anesthesia Complication No 08/22/25 14:48 [email or web address] Anesthesia Complication Comment: Post-operative progress note Anesthesia: Postop Eval II Evaluation Mental status: Awake and Calm Pain Level: 1 nausea: No Vomiting: No Complications Anesthesia Complication: No
--- NOTE | 2025-08-22 15:34 | PCM.POSTANE2 ---
Anesthesia Postop Eval I Sum Postop Eval Completion status Anesthesia document: Postop Eval 1 completed: Yes Anesthesia Postop Eval I Summary Anesthesia Postop Eval I Summary: Anesthesia Postop Eval I: Assessment Summary Airway patent Yes 08/22/25 14:48 TIRE ROOM [email or web address] Spontaneous unlabored Yes 08/22/25 14:48 TIRE ROOM [email or web address] respirations Mental status Calm 08/22/25 14:48 TIRE ROOM [email or web address] nausea No 08/22/25 14:48 TIRE ROOM [email or web address] Vomiting No 08/22/25 14:48 TIRE ROOM [email or web address] Anesthesia Postop Eval I: Fluid Summary Crystalloid volume administer 2,200 08/22/25 14:48 TIRE ROOM [email or web address] (ml) Colloids volume administered ( ml) Blood Product volume administered (ml) Total IV fluid infused 2,200 08/22/25 14:48 TIRE ROOM [email or web address] Anesthesia Postop Eval I: Summary Notes Anesthesia Complication No 08/22/25 14:48 TIRE ROOM [email or web address] Anesthesia Complication Comment: Post-operative progress note Anesthesia: Postop Eval II Evaluation Mental status: Awake and Calm Pain Level: 1 nausea: No Vomiting: No Complications Anesthesia Complication: No
[2025-08-22] MEDS: Lactated Ringers 1,000 ML 70 ML IV (18:58)
--- OUTSIDE RECORDS SUMMARY | 2025-08-22 19:14 | XMS RPT_ITS | CCD ---
Author Organization [facility] Care Team Providers Care Design Coordinator Name Role Phone Garrison Nicole Rush Unavailable Unavailable MOROCCO, EVY NOVA Unavailable Unavail able MOROCCO, EVY D Unavailable Unavailable MOROCCO, EVY D Unavailable Unavailable [facility] Unavailable Unavailable CEBUL, ALE Unavailable Unavailable MOROCCO, EVY D Unavailable Unavailable [facility] Unavailable Unavailable CEBUL, ALE Unavailable Unavailable MOROCCO, EVY D Unavailable Unavailable MOROCCO, EVY D Unavailable Unavailable CEBUL, ALE Unavailable Unavailable Angelica Jolley MD Unavailable [phone] Dr. Anna Marie Hebert Primary Care Provider Dr. Anna Marie Hebert Referring Provider [phone] Dr. Jon Lange Attending Provider [phone] Anna Marie Hebert MD Primary Care Provider [phone] ANNA MARIE HEBERT Primary Care Unavailable Ferullo SEMICONDUCTOR LAB TECHNICIAN-C, Bertha Referring Provider [phone] Dr. Lisbeth Palma DO Attending Provider Dr. Angelica Jolley MD Attending Provider Dr. Angelica Jolley MD Referring Provider Dr. Lisbeth Palma DO Attending Physician Dr. Angelica Jolley MD Attending Physician Care Physician, No Primary Primary Care Physicia n Unavailable Lisbeth Palma Attending Unavailabl e Onio, Bertha Referring Unavailable Tohper Roberts Attending Unavailable Ferullo, Bertha Referring Unavailable Ferullo, Bertha Primary Care Unavailable Care Physician, No Primary Primary Care Unava ilable Rios, Bertha Referring Unavailable Marcanthony, Angelica Attending Unavailable Marcanthony, Aneglica Attending Unavailable Lisbeth Palma [facility] No Primary Primary Care Unava ilable Marcanthony, Angelica Attending Unavailable Marcanthony, Angelica Referring Unavailable Marcanthony, Angelica Attending Unavailable Ferullo, Bertha Primary Care Unavailable Marcanthony, Angelica Referring Unavailable Garrison Emery Primary Care Unavailable Marcanthony, Angelica Attending Unavailable Care Physician, No Primary Primary Care Unava ilable Marcanthony, Angelica Referring Unavailable Marcanthony, Angelica Attending Unavailable Marcanthony, Angelica Referring Unavailable Marcanthony, Angelica Attending Unavailable Allergies Allergy Classification Reported Allergen(s) Allergy Type Date of Onset Reaction(s) Facility (15 sources) caffeine; Translations: [CAFFEINE] food allergy 05-15-[address] [facility] (4 sources) Latex; Translations: [LATEX] Propensity to adverse reactions to drug (disorder) 06-17-20 12 Rash [facility] (4 sources) Seasonal allergy; Translations: [SEASONAL ALLERGIES] Propensity to adverse reactions (disorder) 08-16-20 13 Other: See Comments [facility] (4 sources) Sulfamethoxazole / Trimethoprim; Translations: [SULFAMETHOXAZOLE-T RIMETHOPRIM] Drug Allergy 04-23-20 16 Unknown [facility] (10 sources) Acetaminophen; Translations: [ACETAMINOPHEN] Drug Allergy 11-07-19 Intolerance [facility] (10 sources) Ibuprofen; Translations: [IBUPROFEN] Drug Allergy 11-07-19 Intolerance [facility] (8 sources) LORazepam Drug Allergy 05-29-20 Other [facility] (5 sources) Nonsteroidal Anti-inflammatory Compounds Allergy to substance 04-12-20 Other [facility] (1 source) Acetaminophen Drug Allergy 04-12-20 [facility] (1 source) Ibuprofen Drug Allergy 04-12-20 [facility] (1 source) LORazepam Drug Allergy 04-12-20 [facility] (1 source) NSAIDs Drug allergy (disorder) 04-12-20 [facility] Rep[facility] Medications Current Medications Medication Drug Class(es) Dates Sig (Normalized) Sig (Original) Acetylcysteine (3 sources) Antidote, Mucolytic, Antidote for Acetaminophen Overdose Start: 05-08-2025 Start: 05-08-2025 Acetylcysteine (Bulk) powder Active [facility] May 08, 2025 12:00am amoxicillin 500 mg oral capsule (1 source) Penicillin-class Antibacterial Start: 01-27-2024 End: 02-06-2024 take 1 capsule by mouth twice daily amoxicillin (AMOXIL) 500 mg capsule Indications: Strep throat Take 1 capsule by mouth two times a day for 10 days. 20 capsule 0 01/27/2024 02/06/2024 Active beef liver preparation (3 sources) Non-Standardized Food Allergenic Extract Start: 05-08-2025 Start: 05-08-2025 beef liver Act paddy PO May 08, 2025 12:00am BILEX (5 sources) Start: 04-04-2024 Start: 04-04-2024 BILEX Active 2 - 3 {tbl} PO DAILY April 04, 2024 12:00am cholecalciferol 0.025 mg ora l capsule (9 sources) Vitamin D Start: 08-07-2020 take 1 capsule by mo [facility] once daily Cholecalciferol, Vitamin D3, (VITAMIN D-3) 2,000 unit cap Take by mouth once daily. 0 Active essential oil (8 sources) Start: 03-12-2021 Start: 03-12-2021 essential oil Active 2 NMA PO THREE TIMES A DAY 0 March 12, 2021 12:00am Start: 03-12-2021 essential oil Active PO March 12, 2021 12:00am Fish Oil-DHA-EPA 1,200-144-2 16 mg cap (1 source) Fish Oil-DHA-EPA 1,200-144-216 mg cap Take by mouth. 0 Active Magnesium glycinate (3 sources) Start: 05-08-2025 Start: 05-08-2025 magnesium glyc inate Active PO May 08, 2025 12:00am Multivitamin capsule (1 source) take 1 capsule by mouth once daily Multivitamin capsule Indications: Non-toxic nodular goiter Take 1 capsule by mouth once daily. 0 Active multivitamin,kk-ceul-dhlo rals (3 sources) Start: 08-07-2020 take 1 tablet by mouth once daily multivitamin,de-jzkz-ntyg rals Active 1 TABLET PO DAILY August 07, 2020 1:00am [place] 3,6,9 Combination No.7 (3 sources) Start: 03-12-2021 [place] 3,6,9 Combination No.7 Active MG PO March 12, 2021 12:00am progon B (3 sources) Start: 05-08-2025 Start: 05-08-2025 progon B Activ e PO DAILY May 08, 2025 12:00am Pyridoxal-5 Phosphate (Vb6 P 5p) 100 mg/gram powder (3 sources) Start: 05-08-2025 Start: 05-08-2025 Pyridoxal-5 Ph osphate (Vb6 P5p) 100 mg/gram powder Active NMA PO May 08, 2025 12:00am Completed/Discontinued Medications Medication Drug Class(es) Dates Sig (Normalized) Sig (Original) [id number] 200 actuat albuterol 0.09 mg/actuat metered dose inhaler (8 sources) beta2-Adrenergic Agonist Start: 05-29-2022 End: 12-25-2022 Albuterol Sulfate (Ventolin Hfa) 90 mcg/actuation HFA aerosol inhaler Discontinued 1 - 2 NMA INHALATION EVERY 4 HOURS NEEDED as needed for Wheezing 1 May 29, 2022 12:00am December 25, 2022 10:28am Start: 05-29-2022 End: 12-25-2022 take 1 puff(s) by inhalation every four hours as needed Albuterol Sulfate (Ventolin Hfa) 90 mcg/actuation HFA aerosol inhaler Discontinued 1 - 2 PUFF INHALATION EVERY 4 HOURS NEEDED May 29, 2022 12:00am December 25, 2022 10:28am amoxicillin 875 mg / clavulanate 125 mg oral tablet (12 sources) Penicillin-class Antibacterial Start: 12-25-2022 End: 01-04-2023 Amoxicillin-Pot Clavulanate 875-125 mg tablet Discontinued 1 {tbl} PO Q12H 20 10 0 December 25, 2022 12:00am January 03, 2023 12:00am January 04, 2023 12:04am Acute sinusitis, unspecified Start: 12-25-2022 End: 01-04-2023 take 1 tablet by mouth every twelve hours Amoxicillin-Pot Clavulanate Discontinued 1 TABLET PO Q12H 20 December 25, 2022 12:00am January 04, 2023 12:04am Start: 07-25-2022 End: 08-04-2022 Amoxicillin-Pot Clavulanate 875-125 mg tablet Discontinued 1 {tbl} PO Q12H 20 10 July 25, 2022 1:00am August 03, 2022 1:00am August 04, 2022 1:03am Acute sinusitis, unspecified Start: 07-25-2022 End: 08-04-2022 take 1 tablet by mouth every twelve hours Amoxicillin-Pot Clavulanate Discontinued 1 TABLET PO Q12H 20 July 25, 2022 1:00am August 04, 2022 1:03am Ashwagandha Root Extract (3 sources) Start: 03-12-2021 End: 12-25-2022 Ashwagandha Root Extract Dis continued MG PO March 12, 2021 12:00am December 25, 2022 10:28am Start: 03-12-2021 Ashwagandha Ro ot Extract Active MG PO March 12, 2021 12:00am Ashwagandha Root Extract 300 mg capsule (5 sources) Start: 03-12-2021 End: 12-25-2022 Ashwagandha Root Extract 300 mg capsule Discontinued mg PO March 12, 2021 12:00am December 25, 2022 10:28am calcium ascorbate 500 mg oral tablet (8 sources) Start: 08-07-2020 End: 03-12-2021 take 1 tablet by mouth once daily Ascorbate Calcium (Vitamin C) 500 mg tablet Discontinued 500 mg PO DAILY August 07, 2020 1:00am March 12, 2021 3:16pm cellular complex (8 sources) Start: 03-12-2021 End: 04-12-2025 cellular complex Discontinued 2 NMA PO TWICE A DAY 0 March 12, 2021 12:00am April 12, 2025 9:02am Start: 03-12-2021 cellular compl ex Active PO March 12, 2021 12:00am cyclobenzaprine hydrochloride 10 mg oral tablet (5 sources) Muscle Relaxant Start: 05-17-2024 End: 06-21-2024 take 1 tablet by mouth every eight hours as needed for muscle spasms Cyclobenzaprine 10 mg tablet Discontinued 10 mg PO Q8H as needed for muscle spasm 20 0 May 17, 2024 12:00am June 21, 2024 8:46am ferrous gluconate (8 sources) Start: 08-07-2020 End: 01-12-2023 take 1 tablet by mouth once daily Ferrous Gluconate 236 mg (27 mg iron) tablet Discontinued 236 mg PO DAILY August 07, 2020 1:00am January 12, 2023 10:59am Start: 08-07-2020 End: 01-12-2023 take 236 mg by mouth once daily Ferrous Gluconate Discontinued 236 MG PO DAILY August 07, 2020 1:00am January 12, 2023 10:59am Start: 08-07-2020 take 236 mg by mouth once daily Ferrous Gluconate Active 236 MG PO DAILY August 07, 2020 1:00am Flavoring Agent (Bulk) (Grapefruit) oil (8 sources) Start: 08-07-2020 End: 03-12-2021 Flavoring Agent (Bulk) (Grapefruit) oil Discontinued [facility] August 07, 2020 1:00am March 12, 2021 3:16pm Start: 08-07-2020 End: 03-12-2021 Flavoring Agent (Bulk) (Grap efruit) oil Discontinued EACH August 07, 2020 1:00am March 12, 2021 3:16pm fluconazole 150 mg oral tablet (20 sources) Azole Antifungal Start: 02-11-2024 End: 04-04-2024 take 1 tablet by mouth once Fluconazole 150 mg tablet Discontinued 150 mg PO ONCE 1 0 February 11, 2024 12:00am April 04, 2024 11:04am Start: 01-27-2024 End: 01-28-2024 take 1 tablet by mouth once daily fluconazole (DIFLUCAN) 150 mg tablet Indications: Feared condition not demonstrated Take 1 tablet by mouth once daily for 1 day. 1 tablet 0 01/27/2024 01/28/2024 Active Start: 07-25-2022 End: 01-12-2023 Fluconazole (Diflucan) 150 m g tablet Discontinued 150 mg PO Every 3 Days 2 December 25, 2022 12:00am January 12, 2023 10:59am january repeat second dose 72 hrs after first dose if symptoms persist Start: 08-07-2020 End: 06-25-2021 Fluconazole (Diflucan) 150 m g tablet Discontinued 150 mg PO Every 3 Days 2 0 0 August 07, 2020 1:00am June 25, 2021 9:17am Lactobacillus Combination No.4 (Probiotic) 3 billion cell capsule (5 sources) Start: 07-02-2023 End: 04-12-2025 take 3 capsules by mouth once daily Lactobacillus Combination No.4 (Probiotic) 3 billion cell capsule Discontinued 3000 NMA PO DAILY July 02, 2023 12:00am April 12, 2025 9:01am On Hold: Order Changed administer with a meal lemon oil (3 sources) Start: 08-07-2020 End: 03-12-2021 Lemon Oil Discontinued EACH August 07, 2020 1:00am March 12, 2021 3:16pm Lemon Oil oil (5 sources) Start: 08-07-2020 End: 03-12-2021 Lemon Oil oil Discontinued NMA August 07, 2020 1:00am March 12, 2021 3:16pm Magnesium (13 sources) Start: 02-11-2024 End: 03-22-2024 take 1 tablet by mouth once daily Magnesium 200 mg tablet Discontinued 200 mg PO DAILY February 11, 2024 12:00am March 22, 2024 2:43pm Start: 08-07-2020 End: 03-12-2021 take 1 tablet by mouth once daily Magnesium 250 mg tablet Discontinued 250 mg PO DAILY August 07, 2020 1:00am March 12, 2021 3:16pm Start: 08-07-2020 End: 03-12-2021 take 250 mg by mouth once daily Magnesium Discontinued 250 MG PO DAILY August 07, 2020 1:00am March 12, 2021 3:16pm MEDAPURE DS (5 sources) Start: 04-04-2024 End: 04-19-2024 MEDAPURE DS Discontinued 1 sc PO TWICE A DAY April 04, 2024 12:00am April 19, 2024 9:12am Multivitamin,Tx-Iron- Minerals (Complete Multivitamin) tablet (5 sources) Start: 08-07-2020 End: 04-12-2025 Multivitamin,Ec-Gsvu-Phtl rals (Complete Multivitamin) tablet Discontinued 1 {tbl} PO DAILY August 07, 2020 1:00am April 12, 2025 9:02am nystatin 100 unt/mg topical powder (8 sources) Polyene Antifungal Start: 08-07-2020 End: 06-25-2021 Nystatin (Nystop) 100,000 unit/gram powder Discontinued 1 NMA TOPICAL THREE TIMES A DAY 60 1 August 07, 2020 1:00am June 25, 2021 9:16am Start: 08-07-2020 End: 06-25-2021 Nystatin (Nystop) 100,000 un it/gram powder Discontinued 1 APPLIC TOPICAL THREE TIMES A DAY 60 August 07, 2020 1:00am June 25, 2021 9:16am [place] 3,6,9 Combination No.7 92 mg (43 mg-22 [id number]) tablet,chewable (5 sources) Start: 03-12-2021 End: 04-04-2024 [place] 3,6,9 Combination No.7 92 mg (43 mg-22 [id number]) tablet,chewable Discontinued mg PO March 12, 2021 12:00am April 04, 2024 11:06am oxyCODONE hydrochloride 5 mg oral capsule (5 sources) Opioid Agonist Start: 04-12-2024 End: 04-19-2024 take 1 capsule by mouth every eight hours as needed for pain Oxycodone 5 mg capsule Discontinued 5 mg PO Q8H as needed for pain 10 7 0 April 12, 2024 April 19, 2024 9:12am Encounter for sterilization Status post surgical removal of both fallopian tubes History of dilation and curettage Encounter for sterilization Acquired absence of other genital organ(s) Other specified postprocedural states Pediatric Multivitamin No.17 (Children's Chew Multivitamin) tablet,chewable (8 sources) Start: 08-07-2020 End: 08-07-2020 Pediatric Multivitamin No.17 (Children's Chew Multivitamin) tablet,chewable Discontinued {tbl} PO August 07, 2020 1:00am August 07, 2020 9:20am Start: 08-07-2020 End: 08-07-2020 Pediatric Multivitamin No.17 (Children's Chew Multivitamin) tablet,chewable Discontinued TABLET PO August 07, 2020 1:00am August 07, 2020 9:20am predniSONE 10 mg oral tablet (13 sources) Start: 05-17-2024 End: 06-21-2024 take 4 tablets by mouth once daily, then take 3 tablets by mouth once daily, then take 2 tablets by mouth once daily, then take 1 tablet by mouth once daily Prednisone 10 mg tablet Discontinued 10 mg PO DAILY 30 0 May 17, 2024 12:00am June 21, 2024 8:46am 4 tablets daily x3 days, then 3 tablets daily x3 days, then 2 tablets daily x3 days, then 1 tablet daily x3 days Start: 04-22-2018 End: 06-28-2019 take 1 tablet by mouth once daily Prednisone 20 MG tablet Discontinued 20 mg PO DAILY 5 0 April 22, 2018 12:00am June 28, 2019 9:13am SUPER SUPPLEMENTAL (2 sources) Start: 04-16-2017 take 3 tablets by mouth once daily SUPER SUPPLEMENTAL Three tablets by mouth daily SUPER SUPPLEMENTAL Lety Arnett SEMICONDUCTOR LAB TECHNICIAN thyroid activator (8 sources) Start: 03-12-2021 End: 12-25-2022 thyroid activator Discontinued PO 0 March 12, 2021 12:00am December 25, 2022 10:29am Start: 03-12-2021 End: 12-25-2022 thyroid activator Discontinu ed PO March 12, 2021 12:00am December 25, 2022 10:29am Start: 03-12-2021 thyroid activa tor Active PO March 12, 2021 12:00am tranexamic acid 650 mg oral tablet (8 sources) Antifibrinolytic Agent Start: 06-22-2018 End: 06-28-2019 Tranexamic Acid (Lysteda) 650 mg tablet Discontinued 1300 mg PO THREE TIMES A DAY 60 2 June 22, 2018 12:00am June 28, 2019 9:13am TS 2 (8 sources) Start: 03-12-2021 End: 12-25-2022 TS 2 Discontinued PO 0 March 12, 2021 12:00am December 25, 2022 10:29am Start: 03-12-2021 End: 12-25-2022 TS 2 Discontinued PO March 122020 12:00am December 25, 2022 10:29am Start: 03-12-2021 TS 2 Active PO March 12, 2021 12:00am Turmeric extract (8 sources) Start: 03-12-2021 End: 12-25-2022 Turmeric 400 mg capsule Disc ontinued mg PO March 12, 2021 12:00am December 25, 2022 10:29am Start: 03-12-2021 End: 12-25-2022 Turmeric Discontinued MG PO March 12, 2021 12:00am December 25, 2022 10:29am Start: 03-12-2021 Turmeric Activ e MG PO March 12, 2021 12:00am Problems Active Problems Problem Classification Problem Date Documented Da te Episodic/Chronic Administrative/social admission (1 source) Worried well; Translations: [Person with feared health complaint in whom no diagnosis is made] 01-27-2024 Episodic Chronic obstructive pulmonary disease and bronchiectasis (8 sources) Bronchitis; Translations: [Bronchitis, not specified as acute or chronic] 06-06-2022 Episodic Contraceptive and procreative management (5 sources) Patient encounter status; Translations: [Encounter for sterilization] 03-24-2024 Episodic Comment on above: plan lap BS or IUD Deficiency and other anemia (8 sources) Anemia; Translations: [Anemia, unspecified] 03-12-2021 Episodic Diabetes mellitus without complication (8 sources) Prediabetes; Translations: [Prediabetes] 04-15-2021 Episodic Esophageal disorders (8 sources) Gastroesophageal reflux disease; Translations: [Gastro-esophageal reflux disease without esophagitis] 03-12-2021 Chronic Headache; including migraine (11 sources) Migraine; Translations: [Migraine, unspecified, not intractable, without status migrainosus] Onset: 5 04-12-2025 Chronic Comment on above: without aura Joint disorders and dislocations; trauma-related (2 sources) Derangement of knee; Translations: [Unspecified internal derangement of unspecified knee] Onset: 3 03-23-2013 Chronic Mycoses (8 sources) Candidal intertrigo; Translations: [Candidiasis of skin and nail] 08-08-2020 Episodic Comment on above: diflucan and nystop, diabetes screening Nutritional deficiencies (9 sources) Vitamin D deficiency; Translations: [Vitamin D deficiency, unspecified] Onset: 0 07-06-2022 Chronic Nutritional deficiencies (8 sources) Vitamin deficiency; Translations: [Vitamin deficiency, unspecified] 03-12-2021 Episodic Other connective tissue disease (3 sources) Plantar fasciitis; Translations: [Plantar fascial fibromatosis] 06-25-2021 Episodic Other connective tissue disease (8 sources) Muscle weakness of limb; Translations: [Other symptoms and signs involving the musculoskeletal system] 06-25-2021 Episodic Other connective tissue disease (5 sources) Plantar fasciitis of left foot; Translations: [Plantar fascial fibromatosis] 02-11-2024 Episodic Other ear and sense organ disorders (8 sources) Hearing disorder; Translations: [Unspecified hearing loss, unspecified ear] 03-12-2021 Chronic Other female genital disorders (10 sources) Abnormal uterine bleeding; Translations: [Abnormal uterine and vaginal bleeding, unspecified] 03-24-2024 Chronic Comment on above: labs and US ordered, plan d and c hysterosocpy discussed iud if desired Other female genital disorders (6 sources) Abnormal uterine bleeding due to adenomyosis; Translations: [Abnormal uterine and vaginal bleeding, unspecified] 05-08-2025 Chronic Comment on above: discussed options IU D vs myfembree vs lysteda, or LAVH. patient to decide. US ordered. would need emb. Other female genital disorders (1 source) Abnormal uterine and vaginal bleeding, unspecified; Translations: [Abnormal uterine and vaginal bleeding, unspecified] Onset: 5 Chronic Other female genital disorders (13 sources) Enlarged uterus; Translations: [Hypertrophy of uterus] 04-12-2025 Episodic Comment on above: secondary to adenomy osis Other female genital disorders (1 source) Hypertrophy of uterus; Translations: [Hypertrophy of uterus] Onset: 5 Episodic Other gastrointestinal disorders (5 sources) Altered bowel function; Translations: [Change in bowel habit] 03-22-2024 Episodic Comment on above: Patient 43-year-old female who makes a consultation visit today related to change in bowel habits that has occurred over the last 10 to 12 months. Incidentally she reports that there may have been some improvement in her symptoms which she describes as overall looser stools. Additionally she has noted some rectal pressure and pain with bowel movements as well as spotting on the toilet tissue. This is a clear departure from her standing history with constipation and there does not appear to be a direct antecedent event or source for the change. Further there is no family history of inflammatory bowel disease or GI diagnoses. I did consider the possibility of microscopic colitis, however, patient denies any prior history of tobacco use and shares that she is unable to use NSAID medications due to a rare intolerance. She was previously evaluated with stool studies via C. difficile and enteric pathogen panel both of which were normal. We will look to check a few additional stool studies, but at this point I thus recommend proceeding for diagnostic colonoscopy with random colon biopsies. Other gastrointestinal disorders (5 sources) Diarrhea; Translations: [Diarrhea, unspecified] 02-19-2024 Episodic Other injuries and conditions due to external causes (8 sources) Fracture of bone; Translations: [Other injury of unspecified body region, initial encounter] 03-12-2021 Episodic Other injuries and conditions due to external causes (8 sources) Finding with explicit context; Translations: [Personal history of other (healed) physical injury and trauma] 03-12-2021 Episodic Comment on above: 2000 Other liver diseases (8 sources) Elevated liver enzymes level; Translations: [Abnormal levels of other serum enzymes] 04-16-2021 Episodic Other lower respiratory disease (8 sources) Cough; Translations: [Cough] 06-06-2022 Episodic Other lower respiratory disease (5 sources) Postviral cough; Translations: [Post-viral cough syndrome] 09-02-2024 Episodic Other non-traumatic joint disorders (8 sources) Pain in unspecified knee; Translations: [Knee pain] 06-25-2021 Episodic Other nutritional; endocrine; and metabolic disorders (1 source) Morbid (severe) obesity due to excess calories; Translations: [Morbid (severe) obesity due to excess calories] Onset: 8 Chronic Other nutritional; endocrine; and metabolic disorders (8 sources) Obesity; Translations: [Obesity, unspecified] 07-01-2022 Chronic Other nutritional; endocrine; and metabolic disorders (1 source) Obesity, unspecified; Translations: [Obesity, unspecified] Chronic Other nutritional; endocrine; and metabolic disorders (1 source) Body mass index 40+ - severely obese; Translations: [Morbid (severe) obesity due to excess calories] Onset: 8 05-27-2018 Chronic Other nutritional; endocrine; and metabolic disorders (10 sources) Obese class I; Translations: [Class 1 obesity] 04-12-2025 Chronic Other nutritional; endocrine; and metabolic disorders (7 sources) H/O: thyroid disorder; Translations: [Personal history of other endocrine, nutritional and metabolic disease] 07-01-2022 Episodic Other nutritional; endocrine; and metabolic disorders (1 source) Personal history of other endocrine, nutritional and metabolic disease; Translations: [Personal history of other endocrine, metabolic, and immunity disorders] Episodic Other screening for suspected conditions (not mental disorders or infectious disease) (2 sources) Encounter for screening mammogram for malignant neoplasm of breast; Translations: [Encounter for screening mammogram for malignant neoplasm of breast] Onset: Episodic Other upper respiratory infections (13 sources) Streptococcal sore throat; Translations: [Streptococcal pharyngitis] 12-25-2022 Episodic Residual codes; unclassified (8 sources) Intolerance to drug; Translations: [Other specified health status] 04-15-2021 Episodic Residual codes; unclassified (5 sources) FH: Cardiovascular disease; Translations: [Family history of ischemic heart disease and other diseases of the circulatory system] 06-27-2024 Episodic Residual codes; unclassified (5 sources) FH: Aortic aneurysm; Translations: [Family history of ischemic heart disease and other diseases of the circulatory system] 06-27-2024 Episodic Sprains and strains (5 sources) Strain of neck muscle; Translations: [Strain of muscle, fascia and tendon at neck level, initial encounter] 05-17-2024 Episodic Thyroid disorders (12 sources) Nontoxic goiter, unspecified; Translations: [Hypothyroidism] Onset: 3 04-15-2021 Chronic Unclassified (1 source) Gynecologic examination ; Translations: [Encounter for gynecological examination (general) (routine) without abnormal findings] Onset: 7 04-16-2017 Unclassified (1 source) Unknown / UNK(Unknown) Onset: 8 Unclassified (1 source) Nodule of lung; Translations: [Lung nodule < 6cm on CT] Onset: 8 08-16-2018 Unclassified (1 source) Adenomyosis of the uterus; Translations: [Adenomyosis of the uterus] Onset: 5 Unclassified (1 source) Obesity, class 1; Translations: [Obesity, class 1] Onset: 5 Viral infection (14 sources) Viral disease; Translations: [Viral infection, unspecified] Onset: 0 06-06-2022 Episodic Past or Other Problems Problem Classification Problem Date Documented Date Episodic/Chronic Biliary tract disease (1 source)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
[2025-08-23 03:00] VITALS: BP 112/62; PULSE 75; RESP 16; TEMP 36.6; O2SAT 98
[2025-08-23 07:07] LABS: Hematocrit 36.0 % (37-47); Hemoglobin 12.0 g/dL (12.0-15.0); Mean Corp Hgb Conc 33.3 g/dL (32-36); Mean Corpuscular Volume 83.7 fL (81-99); Mean Platelet Vol. 10.5 fl (6.2-12.0); Platelet Count 274 K/mm3 (150-450); RBC Distribution Width CV 13.4 % (11.6-14.6); RBC Distribution Width SD 41.1 fl (35.1-43.9); Red Blood Count 4.30 M/mm3 (4.2-5.4); White Blood Count 12.7 K/mm3 (4.4-11.0)
--- NOTE | 2025-08-23 07:54 | PCM.PN.OB ---
Subjective Subjective patient recovering well, denies CP, SOB, N, or V. patient is ambulating, tolerating adequate po, and pain is controlled with oral medications. Objective Data Objective Data Vital Signs: Vital Signs Temp Pulse Resp BP Pulse Ox O2 Del Method O2 Flow Rate 98 F 75 16 112/62 98 Room Air 4 08/23/25 03:00 08/23/25 03:00 08/23/25 03:00 08/23/25 03:00 08/23/25 03:00 08/23/25 03:00 08/22/25 16:45 Oxygen Flow Rate (L/min) 4 Oxygen Delivery Method Room Air Weight: 259 lb 11.272 oz Body Mass Index (BMI) 44.6 Intake & Output: Intake and Output for Last 24 Hours 08/21/25 08/22/25 08/23/25 23:59 23:59 23:59 Intake Total 3202 / 3202 Output Total 1200 / 1200 Balance 2001 Lab / Micro Data 08/23/25 06:32 08/08/25 09:54 Labs: Laboratory Results - last 24 hr 08/22/25 08:33: POC Glucose 84 08/22/25 09:05: WBC 8.3, RBC 5.21, Hgb 14.7, Hct 43.8, MCV 84.1, MCH 28.2, MCHC 33.6, RDW Std Deviation 41.1, RDW Coeff of Chris 13.4, Plt Count 283, MPV 10.5 08/23/25 06:32: WBC 12.7 H, RBC 4.30, Hgb 12.0, Hct 36.0 L, MCV 83.7, MCH 27.9, MCHC 33.3, RDW Std Deviation 41.1, RDW Coeff of Chris 13.4, Plt Count 274, MPV 10.5 Physical Exam Const alert, oriented x3 and no apparent distress Resp normal respiratory effort GI soft to palpation and non-distended Inspection: incision other (dressing dry and intact) Narrative: Minimal drainage on peripad Bladder / Kidney Exam: catheter in place Assessment & Plan (1) S/P laparoscopic assisted vaginal hysterectomy (LAVH): COMMENT: SM AUB PLAN: Plan patient is s/p 1 POD 1 1. routine ERAS protocol postop care- increase ambulation, encourage oral intake and oral control of pain. lovenox and scds for dvt prophylaxis, patient stable for discharge to home.
[2025-08-23 08:30] VITALS: BP 121/76; PULSE 78; RESP 16; TEMP 37; O2SAT 96
[2025-08-23] MEDS: Ensure Plus High Protein 120 ML LIQUID PO ×2 (09:07→12:07)
--- NOTE | 2025-08-23 11:11 | PHA.DC_ITS ---
Pharmacy [facility] Counseling Pharmacy Service has performed discharge medication reconciliation and counseling for this patient. Patient said she does not want either prescription filled. I called retail and asked for them to profile the prescriptions. Did tell patient if she has pain she can still have the oxycodone filled later. 1. NAPROXEN 500MG PO BID PRN PAIN - PT HAS ALLERGY, SAYS SHE WILL NOT TAKE 2. OXYCODONE 5MG PO BID PRN PAIN The patient's discharge medication list was reviewed for discrepancies and discrepancies were resolved. The patient was counseled on the following discharge medications and changes in medications for homegoing were reviewed. The Reason for Use, instructions for use, and potential side effects were reviewed for all new medications. The patient's questions regarding all of their medications were answered. The patient was able to verbally demonstrate an understanding of their discharge medications. Medications at Discharge Home Medications beef liver 3,000 mg PO DAILY 05/08/25 magnesium glycinate 500 mg PO DAILY 05/08/25 progon B 8 gtt PO DAILY 05/08/25 BIONUTRIENT 2 cap PO TID 08/07/25 FERROUS GLUCONATE CALCIUM VITAMIN C 1 tab PO DAILY 08/07/25 ascorbic acid (vitamin C) 125 mg chewable tablet (Vitamin C) 250 mg PO DAILY 08/07/25 betaine HCl 300 mg tablet 600 mg PO TID 08/07/25 calcium glucarate 250 mg-diindolylmethane 100 mg capsule 2 cap PO DAILY 08/07/25 cod liver oil 1 cap PO BID 08/07/25 pyridoxal-5 phosphate 100 mg/gram oral powder (VB6 P5P) 100 mg PO DAILY 08/07/25 naproxen 500 mg tablet 500 mg PO BID PRN PRN Pain #30 tabs 08/22/25 oxycodone 5 mg tablet 5 mg PO BID PRN pain 7 days #14 tabs 08/22/25
[2025-08-23 15:00] VITALS: BP 110/64; PULSE 64; RESP 16; TEMP 36.8; O2SAT 99
== END 2025-08-23 15:44 | disposition home or self-care (01) ==
LOC: SDC 16:59 → MS3 16:59
PROVIDERS: Student in an Organized Health Care Education/Training Program; Admitting Provider Obstetrics & Gynecology; PCP Physician Assistant; Referring Provider Obstetrics & Gynecology; Visit Provider Obstetrics & Gynecology
PROC: 0UT9FZZ Resection of Uterus, Via Natural or Artificial Opening With Percutaneous Endoscopic Assistance (ICD-10-PCS; CPT 58550; principal; 2025-08-22 09:40)
DX: N80.03 Adenomyosis of the uterus (principal); N93.9 Abnormal uterine and vaginal bleeding, unspecified; G43.909 Migraine, unspecified, not intractable, without status migrainosus; D50.9 Iron deficiency anemia, unspecified; N94.6 Dysmenorrhea, unspecified; M54.9 Dorsalgia, unspecified; N85.2 Hypertrophy of uterus; K21.9 Gastro-esophageal reflux disease without esophagitis
CPT/HCPCS: 58550; 00944; 36415; 80053; 82962; 83735; 85027; 86850; 86900; 86901; 88307; 93005; 94668; 96372; 99221; A4216; G0378; J2405; J3475

== ENCOUNTER → 2025-08-25 | Outpatient (CLI) | payer OTHER, SELFPAY ==
[2025-08-25 13:28] LABS: Hematocrit 41.7 % (37-47); Hemoglobin 13.6 g/dL (12.0-15.0); Immature Granulocytes Count 0.040 X10^3/uL (0.0-0.0); Mean Corp Hgb Conc 32.6 g/dL (32-36); Mean Corpuscular Volume 85.1 fL (81-99); Mean Platelet Vol. 10.7 fl (6.2-12.0); NRBC Flagged by Analyzer 0 % (0-5); Platelet Count 266 K/mm3 (150-450); RBC Distribution Width CV 13.2 % (11.6-14.6); RBC Distribution Width SD 41.3 fl (35.1-43.9); Red Blood Count 4.90 M/mm3 (4.2-5.4); White Blood Count 9.6 K/mm3 (4.4-11.0)
== END | disposition home or self-care (01) ==
LOC: LAB 12:29
PROVIDERS: PCP Physician Assistant; Referring Provider Obstetrics & Gynecology; Visit Provider Obstetrics & Gynecology
DX: R10.20 Pelvic and perineal pain unspecified side (principal); R42 Dizziness and giddiness
CPT/HCPCS: 36415; 85025; 87086